=== PATIENT | female | born 1980 | race Caucasian/White ===

== ENCOUNTER 2020-02-20 09:02 | Outpatient (REF) | payer OTHER, SELFPAY ==
[2020-02-20 10:06] LABS: MANUAL DIFF FLAG NO
[2020-02-20 10:13] LABS: Glucose Urine UA NEG (NEG); Leukocyte Esterase Urine NEG (NEG); Nitrite Urine NEG (NEG); Specific Gravity - Urine 1.025 (1.005-1.025); Urine Blood NEG (NEG); Urine Ketones 5 MG/DL (NEG); Urine Protein TRACE MG/DL (NEG-TRACE)
[2020-02-20 10:14] LABS: Basophils Percent Auto 0.3 % (0-2); Eosinophils Absolute Auto 0.1 X10*3/uL (0.0-0.4); Eosinophils Percent Auto 1.4 % (0-4); Hematocrit 38.9 % (37-47); Hemoglobin 13.1 g/dl (12.0-16.0); Imm Gran Abs Auto 0.01 X10*3/uL (0.00-0.03); Imm Gran Pct Auto 0.3 % (0.0-0.4); Lymphocytes Percent Auto 26.9 % (20-40); Mean Corpuscular HGB Conc 33.7 g/dl (31.0-35.0); Mean Corpuscular Hemoglobin 32.3 pg (27.0-33.0); Mean Corpuscular Volume 95.8 fL (80-98); Mean Platelet Volume 9.3 fL (9.4-12.3); Monocytes Absolute Auto 0.2 X10*3/uL (0.1-1.2); Monocytes Percent Auto 5.7 % (2-11); Neutrophils Absolute Auto 2.3 X10*3/uL (2.0-8.3); Neutrophils Percent Auto 65.4 % (45-73); Platelet Count 168 X10*3/uL (160-400); Red Blood Count 4.06 X10*6/uL (4.20-5.50); Red Cell Distribution Width 12.4 % (11.0-16.0); White Blood Count 3.5 X10*3/uL (4.8-10.8)
[2020-02-20 10:15] LABS: Appearance Urine HAZY; Color Urine AMBER
[2020-02-20 11:11] LABS: Estimated Average Glucose 108 mg/dL; Hemoglobin A1c % 5.4 %
[2020-02-20 11:13] LABS: Erythrocyte Sedimentation Rate 2 MM/HR (0-20)
[2020-02-20 11:29] LABS: TSH reflex Free T4 1.44 mIU/mL (0.32-4.0)
[2020-02-20 12:02] LABS: Alanine Aminotransferase 107 U/L (0-31); Albumin Level 3.5 g/dL (3.5-5.0); Alkaline Phosphatase 168 U/L (39-117); Anion Gap 10 (12-20); Aspartate Amino Transferase 273 U/L (5-31); Bilirubin Total 1.1 mg/dL (0.0-1.0); Blood Urea Nitrogen 6 mg/dL (9-16); Calcium 8.1 mg/dL (8.4-10.2); Carbon Dioxide 31 mmol/L (22-29); Chloride 100 mmol/L (96-108); Cholesterol 83 mg/dL; Estimated Glomerular Filt Rate > 60; Glucose Fasting 128 mg/dL (60-99); HDL Cholesterol 22 mg/dL; LDL Cholesterol Calculated 35 mg/dl; Magnesium 1.7 mg/dL (1.6-2.6); Potassium 4.7 mmol/l (3.3-5.1); Sodium 136 mmol/L (135-145); Total Protein 6.2 g/dL (6.5-8.0); Triglycerides 132 mg/dL
== END 2020-02-20 09:03 | disposition home or self-care (01) ==
LOC: HO.LAB 09:02
PROVIDERS: PCP Internal Medicine; Visit Provider Internal Medicine
DX: R53.83 Other fatigue (principal); R10.2 Pelvic and perineal pain; R25.2 Cramp and spasm; R73.01 Impaired fasting glucose; E66.9 Obesity, unspecified; R32 Unspecified urinary incontinence
CPT/HCPCS: 36415; 80053; 80061; 81003; 83036; 83735; 84443; 85025; 85652

== ENCOUNTER 2020-03-06 12:43 | Outpatient (REF) | payer OTHER, SELFPAY ==
[2020-03-06 14:21] LABS: Alanine Aminotransferase 32 U/L (0-31); Albumin Level 3.4 g/dL (3.5-5.0); Alkaline Phosphatase 189 U/L (39-117); Anion Gap 12 (12-20); Aspartate Amino Transferase 53 U/L (5-31); Bilirubin Total 0.4 mg/dL (0.0-1.0); Blood Urea Nitrogen 9 mg/dL (9-16); Calcium 8.7 mg/dL (8.4-10.2); Carbon Dioxide 34 mmol/L (22-29); Chloride 99 mmol/L (96-108); Estimated Glomerular Filt Rate > 60; Glucose Random 70 mg/dL (60-115); Magnesium 2.1 mg/dL (1.6-2.6); Potassium 4.6 mmol/l (3.3-5.1); Sodium 140 mmol/L (135-145); Total Protein 6.4 g/dL (6.5-8.0)
[2020-03-06 14:40] LABS: TSH reflex Free T4 0.87 mIU/mL (0.32-4.0)
[2020-03-06 15:13] LABS: Erythrocyte Sedimentation Rate 7 MM/HR (0-20)
== END 2020-03-06 12:44 | disposition home or self-care (01) ==
LOC: HO.LAB 12:43
PROVIDERS: PCP Internal Medicine; Visit Provider Internal Medicine
DX: M79.604 Pain in right leg (principal); M79.605 Pain in left leg; R74.01 Elevation of levels of liver transaminase levels
CPT/HCPCS: 36415; 80053; 82550; 83735; 84443; 85652

== ENCOUNTER 2020-08-03 08:25 | Outpatient (REF) | payer OTHER, SELFPAY ==
[2020-08-03 09:36] LABS: MANUAL DIFF FLAG NO
[2020-08-03 09:41] LABS: Basophils Percent Auto 0.3 % (0-2); Eosinophils Percent Auto 0.7 % (0-4); Hematocrit 37.6 % (37-47); Hemoglobin 12.1 g/dl (12.0-16.0); Imm Gran Abs Auto 0.01 X10*3/uL (0.00-0.03); Imm Gran Pct Auto 0.3 % (0.0-0.4); Lymphocytes Absolute Auto 0.8 X10*3/uL (1.2-4.9); Lymphocytes Percent Auto 25.4 % (20-40); Mean Corpuscular HGB Conc 32.2 g/dl (31.0-35.0); Mean Corpuscular Hemoglobin 32.2 pg (27.0-33.0); Mean Platelet Volume 9.6 fL (9.4-12.3); Monocytes Absolute Auto 0.2 X10*3/uL (0.1-1.2); Neutrophils Percent Auto 66.3 % (45-73); Platelet Count 194 X10*3/uL (160-400); Red Blood Count 3.76 X10*6/uL (4.20-5.50); Red Cell Distribution Width 13.2 % (11.0-16.0)
[2020-08-03 10:21] LABS: Albumin Level 4.3 g/dL (3.5-5.0); Alkaline Phosphatase 118 U/L (39-117); Aspartate Amino Transferase 61 U/L (5-31); Blood Urea Nitrogen 11 mg/dL (9-16); Calcium 9.1 mg/dL (8.4-10.2); Chloride 101 mmol/L (96-108); Estimated Glomerular Filt Rate > 60; Potassium 4.6 mmol/L (3.3-5.1); Sodium 135 mmol/L (135-145)
[2020-08-03 10:31] LABS: Ferritin 112 ng/mL (10-122)
[2020-08-03 10:59] LABS: Alanine Aminotransferase 54 U/L (0-31); Anion Gap 15 (12-20); Bilirubin Total 0.8 mg/dL (0.0-1.0); Carbon Dioxide 24 mmol/L (22-29); Glucose Random 82 mg/dL (60-115); Iron 122 mcg/dL (30-160); Lactate Dehydrogenase 214 U/L (122-220); Percent Iron Saturation 31 % (15-50); Total Iron Binding Capacity 390 mcg/dL (228-428); Total Protein 7.2 g/dL (6.5-8.0); Unsaturated Iron Binding 268 ug/dL
[2020-08-05 13:21] LABS: Transferrin 314 mg/dL (188-341)
== END 2020-08-03 08:26 | disposition home or self-care (01) ==
LOC: HO.LAB 08:25
PROVIDERS: PCP Internal Medicine; Visit Provider Internal Medicine
DX: R79.0 Abnormal level of blood mineral (principal); R73.01 Impaired fasting glucose; R74.01 Elevation of levels of liver transaminase levels
CPT/HCPCS: 36415; 80053; 82728; 83540; 83615; 84466; 85025

== ENCOUNTER 2023-03-20 07:16 | Outpatient (AMB) | payer OTHER, SELFPAY ==
--- NOTE | 2023-03-20 07:17 | MHC.PC.OV ---
Intake Visit Reasons: Med review/ [phone] Allergies codeine [CODEINE] Allergy (Intermediate, Verified 03/20/23 07:23) RASH acetaminophen [Vicodin] Allergy (Unknown, Verified 03/20/23 07:23) unknown hydrocodone [Vicodin] Allergy (Unknown, Verified 03/20/23 07:23) unknown Tobacco use date assessed: 05/24/22 Dental Screening Dental Screen Date: 03/20/23 Did you have a dental visit in the last 12 months?: Yes Did you have a dental problem in the last 6 months where you did not have access to dental care?: No Was dental information given to patient?: Patient has dentist HPI HPI Comments History of Present Illness Details 43-year-old female past medical history significant for impaired glucose tolerance, hepatitis-C, arthralgia, anxiety, depression history polysubstance abuse, asthma. Patient of Dr. Hicks last seen in May, patient presents today for a telehealth appointment for medication review. Patient calling to resume her previously prescribed clonazepam of 2 mg t.i.d. as needed. Patient reports previously changed by Dr. Hicks as there was a shortage of the medication so her dose was changed to clonazepam 1 mg tablets take 2 tablets as needed t.i.d.. Patient reports she does not feel that two 1 mg tablet has the same affect and last as long. She is still having lot of anxiety. Requesting to switch back to her previously prescribed dose of 2 mg tablets t.i.d. p.r.n.. Prescription sent to patient's pharmacy on behalf of Dr. Hicks. [facility] Medical History Abdominal pain, suprapubic Abnormal serum iron level Alcoholism Anxiety Arthralgia Asthma Bruising, spontaneous Depression Edema Fatigue Hepatitis C History of substance abuse Impaired fasting glucose Insomnia Leg pain, bilateral Muscle cramps Obesity (BMI 30-39.9) Overweight (BMI 25.0-29.9) Polysubstance abuse Transaminitis Urinary incontinence Surgical History History of History of cholecystectomy History of laparoscopy History of tonsillectomy Family History Mother Diabetes Father Hypertension Paternal Grandfather Myocardial infarction Social History Housing: Apartment Alcohol intake: current Alcohol intake frequency: holidays/special occasions only Patient Tobacco Use Status: Current everyday Tobacco user Tobacco use type: Cigarette Cigarettes Per Day: 15 e-Cigarette/Vaping Use: Never Used Second Hand Smoke Exposure: No service: No Current occupational status: unemployed Cognitive needs: No Hearing needs: No Vision needs: Yes Questionnaire PHQ-9 Over the last 2 weeks, how often have you been bothered by any of the following problems? 1. Little interest or pleasure in doing things: not at all 2. Feeling down, depressed, or hopeless: several days 3. Trouble falling or staying asleep, or sleeping too much: not at all 4. Feeling tired or having little energy: several days 5. Poor appetite or overeating: not at all 6. Feeling bad about yourself - or that you are a failure or have let yourself or your family down: not at all 7. Trouble concentrating on things, such as reading the newspaper or watching television: not at all 8. Moving or speaking so slowly that other people could have noticed. Or the opposite - being so fidgety or restless that you have been moving around a lot more than usual: several days 9. Thoughts that you would be better off or of hurting yourself in some way: not at all Total score: 3 Depression Screening Interpretation: Positive Depression Screening Follow-up: Existing condition and In treatment Depression Screening Done: Yes [address] - PHQ-9 Billing: Yes Source: Developed by Drs. Manuel Rizo, Lucrecia Cage, Say Hampton and colleagues, with an educational zahra from [employer]. Thrive Questionnaire Date Thrive assessed: 05/24/22 AUDIT C Alcohol Use Questionnaire (AUDIT-C) 1. How often do you have a drink containing alcohol?: Never Total Score: 0 Score Reviewed/Action Taken: Yes RONALD-7 AMB Questionnaire RONALD-7 Date RONALD - 7 assessed: 05/24/22 Feeling nervous, anxious, or on edge: 3 = Nearly every day Not being able to stop or control worryin = Nearly every day Worrying too much about different things: 3 = Nearly every day Trouble relaxin = More than half the days Being so restless that it is hard to sit still: 2 = More than half the days Becoming easily annoyed or irritable: 0 = Not at all Feeling afraid as if something awful might happen: 2 = More than half the days Total RONALD-7 score (0-4 normal; 5-9 mild; 10-14 moderate; 15-21 severe): 15 Source: Developed by Drs. Manuel Rizo, Lucrecia Cage, Say Hampton and colleagues, with an educational zahra from [employer]. Review of Systems Const All systems reviewed & are unremarkable except as noted in HPI and below Psych Reports anxiety and Denies depression Physical exam (Primary Care) Tobacco/Smoking Status: Tobacco use Status Tobacco use date assessed 05/24/22 03/20/23 07:19 Patient Tobacco Use Status Current everyday Tobacco 03/20/23 07:19 Tobacco use type Cigarette 03/20/23 07:19 e-Cigarette/Vaping Use Never Used 03/20/23 07:19 PHQ-9: PHQ-9 Score PHQ-9: Total score 3 03/20/23 07:26 Depression Screening Interpretation: Positive Depression Screening Follow-up: Existing condition and In treatment Thrive Assessment: Date of Thrive Assessment Date Thrive assessed 05/24/22 03/20/23 07:19 Const Other: Unable to complete Tele health exam Telehealth Telehealth Location of provider rendering services: practice address Location of patient: address on file Patient Identification confirmed using: Name, : Yes Telehealth method: voice only (Android) Patient verbally consented to treatment: Yes Patient verbally consented to billing insurance company: Yes Patient informed of any privacy concerns related to visit: Yes Minutes spent on Phone/Video with Pt.: 5 Assessment and Plan Assessment & Plan (1) Anxiety: Code(s): F41.9 - Anxiety disorder, unspecified Plan: Patient change back to previously prescribed dose clonazepam and 2 mg tablets take 2 mg t.i.d. as needed. Rx sent to patient's pharmacy. Plan Follow-up in 6 months for physical exam with PCP. Medications: Changed From clonazepam 2 mg (2 x 1 mg) PO TID 30 days PRN 180 tabs 0RF anxiety F41.9 - Anxiety disorder, unspecified To clonazepam 2 mg PO TID PRN 90 tabs 0RF anxiety 30 days F41.9 - Anxiety disorder, unspecified Coding Level of Care Code Tele Est Pt Level 2 (66149) Diagnoses Anxiety F41.9
--- OUTSIDE RECORDS SUMMARY | 2023-03-20 07:17 | XMS_ITS | Continuity of Care Document ---
Author Name Unknown Organization [facility] Address [address] [place] [address]- Care Team Providers Care Neurodiagnostic Technologist Name Role Phone Kurt BOSS, Aime Eastman Primary Care Physician [phone] Encounter [facility] [place] Date(s): 08/01/22 - 09/23/[address] [address]- Attending Physician: Not on Staff, Attending MD Referring Physician: Kelly Rincon MD Allergies, Adverse Reactions, Alerts Substance Reaction Severity Status codeine vomiting, headache Active penicillin Active Immunizations Given and Recorded Vaccine Date Status Refusal Reason pneumococcal 23-valent vaccine 04/02/15 Given influenza virus vaccine, inactivated 04/02/15 Give n Medications acetaminophen 325 mg oral tablet 650 mg, By Mouth, Every 4 hours, (1-3), may give 325mg per patient preference and re-dose with 325mg within 4 hours, if needed. Patient should only receive a total of 650mg of Acetaminophen every 4 hours., # 30 tablet, Refills 1, Tot. Refills 1, Caryl... Start Date: 03/22/22 Status: Ordered Benadryl 25 mg oral capsule 1 capsule = 25 mg, By Mouth, Every 6 hours, 0 Refills, Maintenance, 03/18/22 8:46:00 EST, Partial fill upon patient request if the prescription is for a schedule II opioid drug. Start Date: 03/18/22 Status: Ordered Colace sodium 100 mg oral capsule 1 capsule = 100 mg, By Mouth, 2 times a day, PRN Constipation, # 20 capsule, 0 Refills, Maintenance, 03/25/15 6:46:38, Capsule Start Date: 03/25/15 Stop Date: 04/04/15 Status: Ordered Ferrous Sulfate EC Refills 0, Maintenance, 03/18/22 8:46:00 EST, Partial fill upon patient request if the prescriptionis for a schedule II opioid drug. Start Date: 03/18/22 Status: Ordered ibuprofen 800 mg oral tablet 800 mg, 1, tablet, By Mouth, Every 8 hours, (4-6), may give 400mg per patient preference and re-dose with 400mg within 8 hours, if needed. Patient should only receive a total of 800mg of Ibuprofen every 8 hours., # 30 tablet, Refills 1, Tot. Refills... Start Date: 03/22/22 Status: Ordered KlonoPIN 2 mg oral tablet 1 tablet = 2 mg, By Mouth, 3 times a day, 0 Refills, Maintenance, 07/13/17 22:51:28 EDT, Tablet Start Date: 07/13/17 Status: Ordered Liletta 52 mg intrauterine device 1 each = 52 mg, Once, 0 Refills, Maintenance, 03/19/22 22:27:00 EST, Partial fill upon patient request if the prescription is for a schedule II opioid drug. Start Date: 03/19/22 Status: Ordered Methadone By Mouth, 0 Refills, Maintenance, 06/18/20 12:39:00 EST, Partial fill upon patient request if the prescription is for a schedule II opioid drug. Start Date: 06/18/20 Status: Ordered Narcan 4 mg/0.1 mL nasal spray = 4 mg, Inhalation, Once, # 2 each, 0 Refills, Soft Stop, 11/11/17 14:14:51 EDT Start Date: 11/11/17 Status: Ordered oxyCODONE 5 mg oral tablet 5 mg, 1, tablet, By Mouth, Every 4 hours, PRN, (7-10), # 18 tablet, Refills 0, Tot. Refills 0, Maintenance, Pain , Severe, 03/22/22 7:10:00 EST, Route to Pharmacy Electronically, [facility]/pharmacy #[id number], Partial fill upon patient request if the prescriptio... Start Date: 03/22/22 Status: Ordered Prilosec 20 mg oral enteric coated capsule 1 capsule = 20 mg, By Mouth, 2 times a day, # 90 capsule, 10 Refills, Maintenance, 11/29/13 10:15:48, EC Capsule, 1 capsule By Mouth 2 times a day Start Date: 11/29/13 Status: Ordered PROzac 20 mg oral capsule 60 mg, 3, capsule, By Mouth, Daily, # 90 capsule, Refills 0, Maintenance, 07/13/17 22:52:10 EDT Start Date: 07/13/17 Status: Ordered simethicone 80 mg oral tablet, chewable 80 mg, Chew, 3 times a day, PRN, # 36 tablet, Refills 0, Tot. Refills 0, Maintenance, Gas, :10:00 EST, Route to Pharmacy Electronically, [facility]/pharmacy #[id number], Partial fill upon patient request if the prescription is for a schedule II opioid . Start Date: 03/22/22 Status: Ordered trazodone 100 mg oral tablet 1 tablet = 100 mg, By Mouth, 3 times a day, 0 Refills, Maintenance, 11/29/13 9:40:25 Start Date: 11/29/13 Status: Ordered Tylenol Caplet = 650 mg, By Mouth, Every 4 hours, 0 Refills, Maintenance, 04/08/15 17:19:50 Start Date: 04/08/15 Status: Ordered Wellbutrin SR 150 mg/12 hours oral tablet, extended release 1 tablet = 150 mg, By Mouth, 2 times a day, # 180 tablet, 0 Refills, Maintenance, 07/14/17 9:03:55 EDT, ER Tablet Start Date: 07/14/17 Status: Ordered Zofran 4 mg oral tablet 1 tablet = 4 mg, By Mouth, Every 8 hours, PRN as needed for nausea/vomiting, # 15 tablet, 0 Refills, Maintenance, 07/17/17 7:45:48 EDT, Tablet Start Date: 07/17/17 Stop Date: 07/22/17 Status: Ordered Problem List Condition Confirmation Course Effective Dates Status Health St atus Informant Anemia Confirmed Active Anxiety Confirmed Active Asthma Confirmed Active GBS bacteriuria Confirmed Active Chronic hypertension affecting Confirmed Active Maternal care for restricted growth, antepartum Confirmed Active Genital HSV Confirmed Active Herpes Confirmed Active Anxiety and depression Confirmed Active Morbid obesity Confirmed Active Obese class I Confirmed Active Opioid use disorder Confirmed Active Methadone maintenance therapy patient Confirmed Active Confirmed Active Uterine scar from previous delivery Confirmed Active Hepatitis C Confirmed Active Social History Social History Type Response Smoking Status Current every day perfecto mario entered on: 07/31/17 Sex Patient Care team information Care Team Personnel Name: Vanessa Villegas RN Position: [facility] RN Member Role: Primary Care Nurse Name: Aime Hicks MD Position: Reference Physician Member Role: PCP Address: Address: [address] [place] [address] [address] [place] [address]- Name: Claire Walker RN Position: [facility] SN RN Member Role: Primary Care Nurse Name: Ryann Shelton RN Position: [facility] RN Member Role: Primary Care Nurse Name: Teodoro Chen RN Position: [facility] RN Member Role: Primary Care Nurse Name: Betsy Nolen RN Position: [facility] RN Member Role: Primary Care Nurse Name: Libertad Worley RN Position: [facility] RN Member Role: Primary Care Nurse Name: Rosa M Crowell RN Position: [facility] Onco RN Member Role: Primary Care Nurse Name: Maddison Tobias RN Position: [facility] Flood[facility] Manager Member Role: Primary Care Nurse Name: Manuel Huynh MD Position: [facility] FLOOR COVERING INSTALLER MD Member Role: Lifetime FLOOR COVERING INSTALLER Physician Address: Address: [address] [place] [address]- Care Team Related Persons Name: BRIDGET GRACIE Address: home [address] [place] [address] Name: CANDICE COLLIER Address: home [address] [place] [address] Name: CONSUELO CASTILLO Address: Address: [address] [place] [address] [place] Name: JALEN MADISON Address: home [address] [place] [address] Name: VERONICA KEN Address: home [address] [place] [address]
--- OUTSIDE RECORDS SUMMARY | 2023-03-20 07:18 | XMS_ITS | Continuity of Care Document ---
Author Name Unknown Organization [facility] Address [address] [place] [address]- Care Team Providers Care Physical Education Professor Name Role Phone Aime Hicks MD Primary Care Physician [phone] [place] [facility] Date(s[place] 10/01/22 - 12/02/[address] [address]- Attending Physician: Not on Staff, Attending MD [...] 03/22/22 7:10:00 EST, Route to Pharmacy Electronically, [facility]/pharmacy #[id number], Partial fill upon patient request if [...] Gas, :10:00 EST, Route to Pharmacy Electronically, [facility]/pharmacy #[id number], Partial fill upon patient request if [...] Team Personnel Name: Vanessa Villegas RN Position: [facility] RN Member Role: Primary Care Nurse Name: Aime Hicks MD Position: Reference Physician Member Role: PCP Address: Address: [address] [place] [address] [address] [place] [address]- [place] Name: Claire Walker RN Position: [facility] SN RN Member Role: Primary Care Nurse Name: Ryann Shelton RN Position: [facility] RN Member Role: Primary Care Nurse Name: Teodoro Chen RN Position: [facility] RN Member Role: Primary Care Nurse Name: Betsy Nolen RN Position: [facility] RN Member Role: Primary Care Nurse Name: Libertad Worley RN Position: [facility] RN Member Role: Primary Care Nurse Name: Rosa M Crowell RN Position: [facility] Onco RN Member Role: Primary Care Nurse Name: Maddison Tobias RN Position: [facility] Manager State Member Role: Primary Care Nurse Name: Manuel Huynh MD Position: [facility] PLATER SUPERVISOR MD Member Role: Lifetime PLATER SUPERVISOR Physician Address: Address: [address] [place], [place] [address] [place] [address]- Care Team Related Persons Name: GRACIE GILL Address: home [address] [place] [address] Name: CANDICE COLLIER Address: [address] [place] [address] Name: CONSUELO CASTILLO Address: Address: [address] [place] [address] [place] Name: JALEN MADISON Address: [address] [place] [address] Name: VERONICA KEN Address: [address] [place] [address]
--- OUTSIDE RECORDS SUMMARY | 2023-03-20 07:19 | XMS_ITS | Continuity of Care Document ---
Author Name Unknown Organization [facility] Address [address] [place] [address]- Care Team Providers Care Nurse Administrator Name Role Phone Aime Hicks MD Primary Care Physician Encounter [facility] [place] Date(s): 11/02/22 - 12/02/[address] [address] Attending Physician: Ya Chang Admitting Physician: Ya Chang Referring Physician: Ya Chang Allergies, Adverse Reactions, Alerts Substance Reaction Severity [...] 03/22/22 7:10:00 EST, Route to Pharmacy Electronically, [facility]/pharmacy #[id number], Partial fill upon patient request if [...] Gas, :10:00 EST, Route to Pharmacy Electronically, [facility]/pharmacy #[id number], Partial fill upon patient request if [...] Team Personnel Name: Vanessa Villegas RN Position: [facility] RN Member Role: Primary Care Nurse Name: Aime Hicks MD Position: Reference Physician Member Role: PCP Address: Address: [address] [place] [address] [address] [place] [address]- Name: Claire Walker RN Position: [facility] SN RN Member Role: Primary Care Nurse Name: Ryann Shelton RN Position: [facility] RN Member Role: Primary Care Nurse Name: Teodoro Chen RN Position: [facility] RN Member Role: Primary Care Nurse Name: Betsy Nolen RN Position: [facility] RN Member Role: Primary Care Nurse Name: Libertad Worley RN Position: [facility] RN Member Role: Primary Care Nurse Name: Rosa M Crowell RN Position: [facility] Onco RN Member Role: Primary Care Nurse Name: Maddison Tobias RN Position: [facility] Physical Therapy Professor Member Role: Primary Care Nurse Name: Manuel Huynh MD Position: [facility] VENDING MECHANIC MD Member Role: Lifetime VENDING MECHANIC Physician Address: Address: [address] [place] [address]- Care Team Related Persons Name: BRIDGET GRACIE Address: [address] [place] [address] Name: CANDICE COLLIER Address: [address] [place] [address] Name: CONSUELO CASTILLO Address: Address: [address] [place] [address] [place] Name: JALEN MADISON Address: [address] [place] [address] Name: VERONICA KEN Address: [address] [place] [address]
== END 2023-03-20 07:35 | disposition home or self-care (01) ==
LOC: HO.HMGH 07:16
PROVIDERS: PCP Internal Medicine; Visit Provider Nurse Practitioner Family
DX: F41.9 Anxiety disorder, unspecified (principal)
CPT/HCPCS: 99212

== ENCOUNTER 2023-05-19 16:34 | Outpatient (AMB) | payer OTHER, SELFPAY ==
--- NOTE | 2023-05-19 16:34 | A.OFFPC_ITS ---
Intake Visit Reasons: Cold like symptoms Software Applications Specialist Required: No Accompanied by: Self / Same As Patient Allergies codeine [CODEINE] Allergy (Intermediate, Verified 05/19/23 17:05) RASH acetaminophen [Vicodin] Allergy (Unknown, Verified 05/19/23 17:05) unknown hydrocodone [Vicodin] Allergy (Unknown, Verified 05/19/23 17:05) unknown Medication List - Last Reconciled 05/19/23 by Aime Hicks MD acamprosate 333 mg PO BID albuterol sulfate 90 mcg/actuation (ProAir HFA) 2 puffs inhalation .4 TIMES A DAY PRN 30 days bupropion HCl 150 mg PO BID 30 days calcium carbonate-vitamin D3 600 mg-10 mcg (400 unit) 1 tab PO DAILY 90 days clonazepam 2 mg PO TID PRN 30 days cyanocobalamin (vitamin B-12) 1,000 mcg PO DAILY 90 days fluoxetine 60 mg (3 x 20 mg) PO QAM 30 days fluticasone propionate 110 mcg/actuation (Flovent HFA) 1 puff PO BID gabapentin 800 mg PO TID 30 days methadone 108 mg PO DAILY prazosin 2 mg PO BEDTIME tizanidine 4 mg PO TID PRN trazodone 50 mg PO BEDTIME PRN 30 days Tobacco use date assessed: 05/19/23 Dental Screening Dental Screen Date: 05/19/23 Did you have a dental visit in the last 12 months?: Yes Did you have a dental problem in the last 6 months where you did not have access to dental care?: No Was dental information given to patient?: Patient has dentist HPI Cold like symptoms HPI Details Patient's follow-up visit / consultation today is done over the phone - this is a Telehealth visit Patient's current medications have been reviewed and verified with patient and / or caregiver / proxy and have been updated accordingly in the medication list Patient states that she has had a chest cold and has been running on and off fever for the past 3 weeks; has been coughing up some greenish phlegm lately States that she had a sore throat initially but her throat feels fine now She denies any headaches or dizziness Denies any chest pains; relates (+) SOB and some chest tightness at times, with occasional wheezing No nausea/vomiting, no abdominal pain No change in bowel habits noted States that she tested herself for COVID a couple of times recently and both times, came back negative [facility] Medical History Overweight (BMI 25.0-29.9) Asthma Edema Bruising, spontaneous Alcoholism Abnormal serum iron level Polysubstance abuse History of substance abuse Insomnia Depression Anxiety Arthralgia Transaminitis Hepatitis C Leg pain, bilateral Obesity (BMI 30-39.9) Impaired fasting glucose Urinary incontinence Abdominal pain, suprapubic Fatigue Muscle cramps Surgical History History of laparoscopy History of cholecystectomy History of tonsillectomy History of Family History Mother Diabetes Father Hypertension Paternal Grandfather Myocardial infarction Social History Housing: Apartment Alcohol intake: current Alcohol intake frequency: holidays/special occasions only Patient Tobacco Use Status: Current everyday Tobacco user Tobacco use type: Cigarette Cigarettes Per Day: 15 e-Cigarette/Vaping Use: Never Used Second Hand Smoke Exposure: No service: No Current occupational status: unemployed Cognitive needs: No Hearing needs: No Vision needs: Yes Questionnaire PHQ-9 Over the last 2 weeks, how often have you been bothered by any of the following problems? 1. Little interest or pleasure in doing things: not at all 2. Feeling down, depressed, or hopeless: several days 3. Trouble falling or staying asleep, or sleeping too much: not at all 4. Feeling tired or having little energy: several days 5. Poor appetite or overeating: not at all 6. Feeling bad about yourself - or that you are a failure or have let yourself or your family down: not at all 7. Trouble concentrating on things, such as reading the newspaper or watching television: not at all 8. Moving or speaking so slowly that other people could have noticed. Or the opposite - being so fidgety or restless that you have been moving around a lot more than usual: several days 9. Thoughts that you would be better off or of hurting yourself in some way: not at all Total score: 3 Depression Screening Interpretation: Positive Depression Screening Follow-up: Existing condition and In treatment Depression Screening Done: Yes 81153 - PHQ-9 Billing: Yes Source: Developed by Drs. Manuel Rizo, Lucrecia Caeg, Say Hampton and colleagues, with an educational zahra from [employer]. Thrive Questionnaire Date Thrive assessed: 05/19/23 I am a: Patient What is your living situation today?: I have a steady place to live Within the past 12 months, did the food you bought not last and you didn't have the money to get more?: Never true Within the past 12 months, did you worry whether your food would run out before you got money to buy more?: Never true Do you have trouble paying for medicines?: No Do you have trouble getting transportation to medical appointments?: No Do you have trouble paying your heating and electricity bill?: No Do you have trouble taking care of your child, family member or friend?: No Do you have trouble with day-to-day activities such as bathing, preparing meals, shopping, managing finances, etc.?: No Are you currently unemployed and looking for a job?: No Are you interested in more education?: No Please select the resources that you would like help with: None Currently or been in a relationship where the following occur: no concerns reported THRIVE Score: 0 AUDIT C Alcohol Use Questionnaire (AUDIT-C) 1. How often do you have a drink containing alcohol?: Never Total Score: 0 Score Reviewed/Action Taken: Yes RONALD-7 AMB Questionnaire RONALD-7 Date RONALD - 7 assessed: 05/19/23 Feeling nervous, anxious, or on edge: 3 = Nearly every day Not being able to stop or control worryin = Nearly every day Worrying too much about different things: 3 = Nearly every day Trouble relaxin = More than half the days Being so restless that it is hard to sit still: 2 = More than half the days Becoming easily annoyed or irritable: 0 = Not at all Feeling afraid as if something awful might happen: 2 = More than half the days Total RONALD-7 score (0-4 normal; 5-9 mild; 10-14 moderate; 15-21 severe): 15 Source: Developed by Lucrecia Lew Niles, Say Hampton and colleagues, with an educational zahra from [employer]. Review of Systems Const Denies chills, Reports fatigue, Reports fever(s) (on and off) and Denies headache(s) ENT Denies dysphagia, Denies dizziness, Denies otalgia, Denies headache(s), Denies neck pain, Denies odynophagia and Denies sore throat Card Denies chest pain, Denies palpitations and Reports dyspnea on exertion (mild) Resp Reports chest congestion (chest feels tight at times), Reports cough (coughs up greenish phlegm at times), Reports dyspnea on exertion (mild) and Reports wheezing (occasionally) GI Denies abdominal pain, Denies constipation, Denies dysphagia, Denies heartburn, Denies diarrhea, Denies nausea, Denies odynophagia and Denies vomiting Denies difficulty voiding, Denies nocturia and Denies dysuria Musc Denies neck pain Skin/Breast Denies rash Neuro Denies dizziness and Denies headache(s) Endo Reports fatigue and Denies palpitations Aller/Immun Reports wheezing (occasionally) Physical exam (Primary Care) Vital Signs: Physical examination is not performed as visit / consultation today is done over the phone - Telehealth visit All physical findings indicated here, if present, are as per patient's and / or caregivers / proxy's report Tobacco/Smoking Status: Tobacco use Status Tobacco use date assessed 05/19/23 05/19/23 16:38 Patient Tobacco Use Status Current everyday Tobacco 05/19/23 16:38 Tobacco use type Cigarette 05/19/23 16:38 e-Cigarette/Vaping Use Never Used 05/19/23 16:38 PHQ-9: PHQ-9 Score PHQ-9: Total score 3 05/19/23 17:07 Depression Screening Interpretation: Positive Depression Screening Follow-up: Existing condition and In treatment Thrive Assessment: Date of Thrive Assessment Date Thrive assessed 05/19/23 05/19/23 16:38 Currently or been in a relationship where the following occur: no concerns reported Telehealth Telehealth Location of provider rendering services: practice address Location of patient: address on file Patient Identification confirmed using: Name, : Yes Telehealth method: voice only Patient verbally consented to treatment: Yes Patient verbally consented to billing insurance company: Yes Patient informed of any privacy concerns related to visit: Yes Minutes spent on Phone/Video with Pt.: 21 Assessment and Plan Assessment & Plan (1) Asthma exacerbation: Code(s): J45.901 - Unspecified asthma with (acute) exacerbation Qualifiers: Asthma severity: moderate Asthma persistence: persistent Qualified Code(s): J45.41 - Moderate persistent asthma with (acute) exacerbation Plan: Will start patient empirically on Doxycycline 100 mg BID x 10 days and oral Prednisone taper Continue Flovent 100 mch 1 inhalation BID and Albuterol HFA 2 inhalations Q 6 hours PRN (2) Alcoholism: Code(s): F10.20 - Alcohol dependence, uncomplicated Plan: States that she has been sober and has not had any alcohol to drink in a while now Continue Campral 333 mg 1 tablet BID (3) Hepatitis C: Code(s): B19.20 - Unspecified viral hepatitis C without hepatic coma Qualifiers: Viral hepatitis chronicity: chronic Hepatic coma status: without hepatic coma Qualified Code(s): B18.2 - Chronic viral hepatitis C Plan: S/P Tx with [facility] Patient's hepatitis C viral load was at 3,650,000 when checked last February 2019; genotype is 1A Follow up with GI as scheduled for continuing surveillance (4) History of substance abuse: Code(s): F19.11 - Other psychoactive substance abuse, in remission Plan: Used to be on Suboxone but suffered a relapse; is now on Methadone at 108 mg QD Follow up with the [facility] ([facility]) regularly as scheduled (5) Insomnia: Code(s): G47.00 - Insomnia, unspecified Qualifiers: Insomnia type: unspecified Qualified Code(s): G47.00 - Insomnia, unspecified Plan: Sleep hygiene reinforced Continue Trazodone 50 mg Q HS PRN (6) Anxiety: Code(s): F41.9 - Anxiety disorder, unspecified Plan: Continue Clonazepam 2 mg 3 times a day as needed (7) Depression: Code(s): F32.9 - Major depressive disorder, single episode, unspecified Qualifiers: Depression Type: major depressive disorder Major depression recurrence: recurrent Active/Remission status: currently active Major depression episode severity: unspecified Qualified Code(s): F33.9 - Major depressive disorder, recurrent, unspecified Plan: Continue Fluoxetine 20 mg 3 capsules (60 mg) daily in the morning, Wellbutrin SR 150 mg twice a day, and Prazosin 2 mg once a day at bedtime (helps with her nightmares), as well as Gabapentin 800 mg TID Follow-up with Psychiatry as scheduled Plan To return as scheduled in August 2023 for her annual physical examination Medications: New prednisone 4 tablets x 2 days, then 3 tablets x 2 days, then 2 tablets x 2 days, then 1 tablet x 2 days 8 days 20 tabs 0RF J45.901 - Unspecified asthma with (acute) exacerbation, M25.50 - Pain in unspecified joint doxycycline monohydrate 100 mg PO BID 10 days 20 caps 0RF Coding Level of Care Code Tele Est Pt Level 3 (97550) Diagnoses Moderate persistent asthma with exacerbation J45.41 Asthma severity: moderate Asthma persistence: persistent Alcoholism F10.20 Chronic hepatitis C without hepatic coma B18.2 Viral hepatitis chronicity: chronic Hepatic coma status: without hepatic coma History of substance abuse F19.11 Insomnia, unspecified type G47.00 Insomnia type: unspecified Anxiety F41.9 Episode of recurrent major depressive disorder, unspecified depression episode severity F33.9 Depression Type: major depressive disorder Major depression recurrence: recurrent Active/Remission status: currently active Major depression episode severity: unspecified
--- OUTSIDE RECORDS SUMMARY | 2023-05-19 16:35 | XMS_ITS | Continuity of Care Document ---
Author Name Unknown Organization [facility] Address [address] [place] [id number]- Care Team Providers Care Law Clerk Name Role Phone Barbra BOSS, Juancarlos Michelle Primary Care Physician [place] [facility] [place] - 04/22/[address] [address]- Attending Physician: Ya Chang Admitting Physician: Ya Chang Referring Physician: AdmtrYa Allergies, Adverse Reactions, Alerts Substance Reaction Severity [...] 03/22/22 7:10:00 EST, Route to Pharmacy Electronically, [facility]/pharmacy #[id number], Partial fill upon patient request if [...] Gas, :10:00 EST, Route to Pharmacy Electronically, [facility]/pharmacy #[id number], Partial fill upon patient request if [...] Care team information Care Team Personnel Name: Vanesas Villegas RN Position: [facility] RN Member Role: Primary Care Nurse Name: Claire Walker RN Position: [facility] SN RN Member Role: Primary Care Nurse Name: Ryann Shelton RN Position: [facility] RN Member Role: Primary Care Nurse Name: Teodoro Chen RN Position: [facility] RN Member Role: Primary Care Nurse Name: Juancarlos Belle MD Position: Reference Physician Member Role: PCP Address: Address: [address] [place] [id number] Name: Betsy Nolen RN Position: [facility] RN Member Role: Primary Care Nurse Name: Libertad Worley RN Position: [facility] RN Member Role: Primary Care Nurse Name: Rosa M Crowell RN Position: [facility] Onco RN Member Role: Primary Care Nurse Name: Maddison Tobias RN Position: [facility] Vocational Examiner Member Role: Primary Care Nurse Name: Manuel Hunyh MD Position: [facility] CONCRETE MIXING TRUCK DRIVER MD Member Role: Lifetime CONCRETE MIXING TRUCK DRIVER Physician Address: Address: [address] [place] [address] [address]- Care Team Related Persons Name: GRACIE GILL Address: home [address] [place] [address] Name: CANDICE COLLIER Address: home [address] [place] [address] Name: CONSUELO CASTILLO Address: Address: home [address] [place] [address] [place] Name: JALEN MADISON Address: home [address] [place] [address] Name: VERONICA KEN Address: home [address] [place] [address]
--- OUTSIDE RECORDS SUMMARY | 2023-05-19 16:36 | XMS_ITS | Continuity of Care Document ---
Author Name Unknown Organization [facility] Address [address] [place] [address]- Care Team Providers Care Dyno Technician Name Role Phone Barbra BOSS, Juancarlos Michelle Primary Care Physician [place] [facility] [place] - 04/13/[address] [address]- Allergies, Adverse Reactions, Alerts Substance Reaction Severity [...] 7:10:00 EST, Route to Pharmacy Electronically, [facility]/pharmacy #[id number], Partial fill upon patient request [...] :10:00 EST, Route to Pharmacy Electronically, [facility]/pharmacy #[id number], Partial fill upon patient request [...] Team Personnel Name: Vanessa Villegas RN Position: [facility] RN Member Role: Primary Care Nurse Name: Claire Walker RN Position: [facility] SN RN Member Role: Primary Care Nurse Name: Ryann Shelton RN Position: [facility] RN Member Role: Primary Care Nurse Name: Teodoro Chen RN Position: [facility] RN Member Role: Primary Care Nurse Name: Juancarlos Belle MD Position: Reference Physician Member Role: PCP Address: Address: [address] [place] [address]- Name: Betsy Nolen RN Position: [facility] RN Member Role: Primary Care Nurse Name: Libertad Worley RN Position: [facility] RN Member Role: Primary Care Nurse Name: oRsa M Crowell RN Position: [facility] Onco RN Member Role: Primary Care Nurse Name: Maddison Tobias RN Position: [facility] Bottle And Glass Inspector Member Role: Primary Care Nurse Name: Manuel Huynh MD Position: [facility] NETWORK SYSTEMS ADMINISTRATOR MD Member Role: [employer]etime NETWORK SYSTEMS ADMINISTRATOR Physician Address: Address: [address] [place] [address]- Care Team Related Persons Name: GRACIE GILL Address: home [address] [place] [address] Name: CANDICE COLLIER Address: home [address] [place] [address] Name: CONSUELO CASTILLO Address: Address: home [address] [place] [address] [place] Name: JALEN MADISON Address: home [address] [place] [address] Name: VERONICA KEN Address: home [address] [place] [address]
--- OUTSIDE RECORDS SUMMARY | 2023-05-19 16:37 | XMS_ITS | Continuity of Care Document ---
Author Name Unknown Organization [facility] Address [address] [place] [address]- Care Team Providers Care Certified Technician Specialist Name Role Phone Barbra BOSS, Juancarlos Michelle Primary Care Phys[place] [facility] [place] - 04/22/[address] [address]- Attending Physician: Not on Staff, Attending MD Allergies, Adverse Reactions, Alerts Substance Reaction [...] 03/22/22 7:10:00 EST, Route to Pharmacy Electronically, [facility]/pharmacy #[id number], Partial fill upon patient request if the [...] Gas, :10:00 EST, Route to Pharmacy Electronically, [facility]/pharmacy #[id number], Partial fill upon patient request if [...] Team Personnel Name: Vanessa Villegas RN Position: [facility] RN Member Role: Primary Care Nurse Name: Claire Walker RN Position: [facility] SN RN Member Role: Primary Care Nurse Name: Ryann Shelton RN Position: [facility] RN Member Role: Primary Care Nurse Name: Teodoro Chen RN Position: [facility] RN Member Role: Primary Care Nurse Name: Juancarlos Belle MD Position: Reference Physician Member Role: PCP Address: Address: [address] [place] [address]- Name: Betsy Nolen RN Position: [facility] RN Member Role: Primary Care Nurse Name: Libertad Worley RN Position: [facility] RN Member Role: Primary Care Nurse Name: Rosa M Crowell RN Position: [facility] Onco RN Member Role: Primary Care Nurse Name: Maddison Tobias RN Position: [facility] Cigar Brander Member Role: Primary Care Nurse Name: Manuel Huynh MD Position: [facility] SHIPPING SUPERVISOR MD Member Role: [employer]etime SHIPPING SUPERVISOR Physician Address: Address: [address] [place], [place] [address] [place], [place] [address] Care Team Related Persons Name: GRACIE GILL Address: home [address] [place] [address] Name: CANDICE COLLIER Address: home [address] [place] [address] Name: CONSUELO CASTILLO Address: Address: home [address] [place] [address] [place] Name: JALEN MADISON Address: home [address] [place] [address] Name: VERONICA KEN Address: home [address] [place] [address]
== END 2023-05-19 17:14 | disposition home or self-care (01) ==
LOC: HO.HMGH 16:34
PROVIDERS: PCP Internal Medicine; Visit Provider Internal Medicine
DX: J45.41 Moderate persistent asthma with (acute) exacerbation (principal); F10.20 Alcohol dependence, uncomplicated; G47.00 Insomnia, unspecified; F33.9 Major depressive disorder, recurrent, unspecified; F41.9 Anxiety disorder, unspecified
CPT/HCPCS: 99213

== ENCOUNTER 2024-03-20 13:03 | Outpatient (AMB) | payer OTHER, SELFPAY ==
[2024-03-20 13:09] VITALS: BP 110/78; PULSE 73; O2SAT 97; BMI 33.0
--- NOTE | 2024-03-20 13:09 | A.OFFPC_ITS ---
Vital Signs 03/20/24 13:09 Height 5 ft 2 in Weight 180 lb 8 oz BMI 33.0 BP 110/78 Blood Pressure Location Lt brachial Position Sitting Pulse 73 Pulse Source Pulse Oximeter Pulse Oximetry (%) 97 Oxygen Delivery Method Room Air Intake Visit Reasons: Insomnia, Med F/U Hand I Blocker Required: No Accompanied by: Self / Same As Patient Allergies codeine [CODEINE] Allergy (Intermediate, Verified 03/20/24 13:47) RASH acetaminophen [Vicodin] Allergy (Unknown, Verified 03/20/24 13:47) unknown hydrocodone [Vicodin] Allergy (Unknown, Verified 03/20/24 13:47) unknown Medication List - Last Reconciled 03/20/24 by Aime Hicks MD acamprosate 333 mg PO BID albuterol sulfate 90 mcg/actuation (Ventolin HFA) 2 puffs inhalation QID PRN bupropion HCl SR 150 mg PO BID 30 days calcium carbonate-vitamin D3 600 mg-10 mcg (400 unit) 1 tab PO DAILY 90 days clonazepam 2 mg PO TID PRN 30 days cyanocobalamin (vitamin B-12) 1,000 mcg PO DAILY 90 days fluoxetine 60 mg (3 x 20 mg) PO QAM 30 days fluticasone propionate 110 mcg/actuation (Flovent HFA) 1 puff PO BID gabapentin 800 mg PO TID 30 days methadone 108 mg PO DAILY mirabegron ER (Myrbetriq) 50 mg PO DAILY mometasone 100 mcg/actuation (Asmanex HFA) 2 puffs inhalation BID prazosin 2 mg PO BEDTIME tizanidine 4 mg PO TID PRN Tobacco use date assessed: 03/20/24 Dental Screening Dental Screen Date: 03/20/24 Did you have a dental visit in the last 12 months?: Yes Did you have a dental problem in the last 6 months where you did not have access to dental care?: No Was dental information given to patient?: Patient has dentist HPI Insomnia, Med F/U HPI Details Patient comes in today for her follow-up visit She went to the ER at [facility] early last month for evaluation of her IUD due to increased cramping pain for the past few days States that she has had intermittent cramps and vaginal bleeding for the past 15 months and is scheduled to have her IUD removed on an outpatient basis on 02/12/2024 but she came into the ER the weekend prior due to her increased cramping pain She was examined in the ER but the examiner was unable to see any of her IUD strings and suspects that her IUD may have already fallen out at the time She was advised that there were no signs of pelvic inflammatory disease on her pelvic exam and no vaginal bleeding noted as well at the time and was advised to keep her outpatient follow-up with her paper folding machine operator the following Monday She continues to experience recurrent urinary symptoms due to stress urinary incontinence and is scheduled for surgery on 04/09/2024 (likely a mesh or sling insertion) to help address her urinary symptoms She was also recently treated for bacterial vaginosis that was diagnosed during her ER visit last month Patient states that she continues to experience significant difficulty with sleeping at night States that her Trazodone, previously effective at 300 mg, is now somehow inexplicably lowered down to 50 mg and is of his sleep ineffective, causing her to wake after only two hours; she also reports experiencing frequent nightmares when sleeping at night lately She is also concerned about her weight gain, which she states has exacerbated her depression, and is interested in trying the GLP-1s to help her lose weight She has been referred to and will be seeing a psychiatrist within the next month Additionally, she reports a history of toenail problems, possibly linked to a past hepatitis infection, with toenails changing color and one of her toenails falling off recently She denies any headaches or dizziness Denies any chest pains, no increased shortness of breath No nausea/vomiting, no change in bowel habits noted [facility] Medical History Overweight (BMI 25.0-29.9) Asthma Edema Bruising, spontaneous Alcoholism Abnormal serum iron level Polysubstance abuse History of substance abuse Insomnia Depression Anxiety Arthralgia Transaminitis Hepatitis C Leg pain, bilateral Obesity (BMI 30-39.9) Impaired fasting glucose Urinary incontinence Abdominal pain, suprapubic Fatigue Muscle cramps Surgical History History of laparoscopy History of cholecystectomy History of tonsillectomy History of Family History Mother Diabetes Father Hypertension Paternal Grandfather Myocardial infarction Social History Housing: Apartment Alcohol intake: current Alcohol intake frequency: holidays/special occasions only Patient Tobacco Use Status: Current everyday Tobacco user Tobacco use type: Cigarette Cigarettes Per Day: 15 e-Cigarette/Vaping Use: Never Used Second Hand Smoke Exposure: No service: No Current occupational status: unemployed Cognitive needs: No Hearing needs: No Vision needs: Yes Questionnaire PHQ-9 Over the last 2 weeks, how often have you been bothered by any of the following problems? 1. Little interest or pleasure in doing things: not at all 2. Feeling down, depressed, or hopeless: several days 3. Trouble falling or staying asleep, or sleeping too much: not at all 4. Feeling tired or having little energy: several days 5. Poor appetite or overeating: not at all 6. Feeling bad about yourself - or that you are a failure or have let yourself or your family down: not at all 7. Trouble concentrating on things, such as reading the newspaper or watching television: not at all 8. Moving or speaking so slowly that other people could have noticed. Or the opposite - being so fidgety or restless that you have been moving around a lot more than usual: several days 9. Thoughts that you would be better off or of hurting yourself in some way: not at all Total score: 3 Depression Screening Interpretation: Positive Depression Screening Follow-up: Existing condition, In treatment and New Medication prescribed Depression Screening Done: Yes 74787 - PHQ-9 Billing: Yes Source: Developed by Drs. Manuel Rizo, Lucrecia Cage, Say Hampton and colleagues, with an educational zahra from [employer]. Thrive Questionnaire Date Thrive assessed: 03/20/24 I am a: Patient What is your living situation today?: I have a steady place to live Within the past 12 months, did the food you bought not last and you didn't have the money to get more?: Never true Within the past 12 months, did you worry whether your food would run out before you got money to buy more?: Never true Do you have trouble paying for medicines?: No Do you have trouble getting transportation to medical appointments?: No Do you have trouble paying your heating and electricity bill?: No Do you have trouble taking care of your child, family member or friend?: No Do you have trouble with day-to-day activities such as bathing, preparing meals, shopping, managing finances, etc.?: No Are you currently unemployed and looking for a job?: No Are you interested in more education?: No Please select the resources that you would like help with: None Currently or been in a relationship where the following occur: No concerns reported THRIVE Score: 0 AUDIT C Alcohol Use Questionnaire (AUDIT-C) 1. How often do you have a drink containing alcohol?: Never 3. How often do you have six or more drinks on one occasion?: Never Total Score: 0 Score Reviewed/Action Taken: Yes RONALD-7 AMB Questionnaire RONALD-7 Date RONALD - 7 assessed: 03/20/24 Feeling nervous, anxious, or on edge: 3 = Nearly every day Not being able to stop or control worryin = Nearly every day Worrying too much about different things: 3 = Nearly every day Trouble relaxin = More than half the days Being so restless that it is hard to sit still: 2 = More than half the days Becoming easily annoyed or irritable: 0 = Not at all Feeling afraid as if something awful might happen: 2 = More than half the days Total RONALD-7 score (0-4 normal; 5-9 mild; 10-14 moderate; 15-21 severe): 15 Source: Developed by Drs. Manuel Rizo, Lucrecia Cage, Say Hampton and colleagues, with an educational zahra from [employer]. Review of Systems Const Denies chills, Reports difficulty sleeping, Reports fatigue, Denies fever(s) and Denies headache(s) ENT Denies dysphagia, Denies dizziness, Denies otalgia, Denies headache(s), Denies neck pain, Denies odynophagia and Denies sore throat Card Denies chest pain, Denies palpitations and Reports dyspnea on exertion (mild) Resp Denies chest congestion, Denies cough and Reports dyspnea on exertion (mild) GI Reports abdominal pain (on and off cramping pain over the lower abdomen), Denies constipation, Denies dysphagia, Denies heartburn, Denies diarrhea, Denies nausea, Denies odynophagia and Denies vomiting Denies difficulty voiding, Denies nocturia, Denies dysuria, Reports urinary incontinence and Reports urinary urgency (at times) Musc Denies back pain, Denies arthralgias and Denies neck pain Skin/Breast Denies rash Neuro Denies dizziness and Denies headache(s) Psych Reports anxiety and Reports depression Endo Reports fatigue and Denies palpitations Physical exam (Primary Care) Vital Signs: Last Vital Signs Pulse 73 03/20/24 13:09 BP 110/78 03/20/24 13:09 Pulse Ox 97 03/20/24 13:09 Oxygen Delivery Method Room Air 03/20/24 13:09 BMI result Body Mass Index 33.0 Tobacco/Smoking Status: Tobacco use Status Tobacco use date assessed 03/20/24 03/20/24 13:13 Patient Tobacco Use Status Current everyday Tobacco 03/20/24 13:13 Tobacco use type Cigarette 03/20/24 13:13 e-Cigarette/Vaping Use Never Used 03/20/24 13:13 PHQ-9: PHQ-9 Score PHQ-9: Total score 3 03/24/24 13:29 Depression Screening Interpretation: Positive Depression Screening Follow-up: Existing condition, In treatment and New Medication prescribed Thrive Assessment: Date of Thrive Assessment Date Thrive assessed 03/20/24 03/20/24 13:13 Currently or been in a relationship where the following occur: No concerns reported Const General: no acute distress and alert HENMT Ears: TM's normal bilaterally and EAC's normal Throat: Yes posterior oropharynx normal and Yes tonsils normal (no TP congestion) Neck Neck: Yes supple and No lymphadenopathy Thyroid: Thyroid normal Resp Auscultation: clear to auscultation bilaterally, no rales and no wheezes Cardio Rate: regular rate Rhythm: regular rhythm Heart sounds: no murmurs GI Palpation (GI): Soft to palpation and nontender Auscultation: normal bowel sounds General: Yes no CVA tenderness Back/Spine/Pelvis Back: no CVA tenderness Thoracic/Lumbar Spine: lumbar spinal tenderness (mild) Skin Rashes: no rashes Extrem Other: (+) onycholysis of several toenails on both feet General: Yes no clubbing, cyanosis or edema Coding Level of Care Code Est Pt Level 4 (53344) Diagnoses Urinary incontinence, unspecified type R32 Urinary Incontinence type: unspecified incontinence Mild intermittent asthma without complication J45.20 Asthma complication type: uncomplicated Asthma persistence: intermittent Asthma severity: mild Alcoholism F10.20 Chronic hepatitis C without hepatic coma B18.2 Hepatic coma status: without hepatic coma Viral hepatitis chronicity: chronic Impaired fasting glucose R73.01 History of substance abuse F19.11 Onycholysis of toenail L60.1 Insomnia, unspecified type G47.00 Insomnia type: unspecified Anxiety F41.9 Episode of recurrent major depressive disorder, unspecified depression episode severity F33.9 Active/Remission status: currently active Depression Type: major depressive disorder Major depression episode severity: unspecified Major depression recurrence: recurrent Obesity (BMI 30-39.9) E66.9 Additional Codes PHQ-9 - 23518 - PHQ-9 Billing: Yes ([id number]) Assessment & Plan Assessment & Plan (1) Urinary incontinence: Code(s): R32 - Unspecified urinary incontinence Category: Medical Qualifiers: Urinary Incontinence type: unspecified incontinence Qualified Code(s): R32 - Unspecified urinary incontinence Plan: Will check her urinalysis for further evaluation when she goes for her follow up labs later today She is currently scheduled to undergo urologic surgery to help address this issue at the end of the month at [facility] on 04/09/2024 Follow-up with urology as scheduled (2) Asthma: Code(s): J45.909 - Unspecified asthma, uncomplicated Category: Medical Qualifiers: Asthma complication type: uncomplicated Asthma persistence: intermittent Asthma severity: mild Qualified Code(s): J45.20 - Mild intermittent asthma, uncomplicated Plan: Her asthma currently appears adequately controlled Continue Flovent 100 mch 1 inhalation BID and Albuterol HFA 2 inhalations Q 6 hours PRN (3) Alcoholism: Code(s): F10.20 - Alcohol dependence, uncomplicated Category: Medical Plan: States that she has been able to stay sober and has not had any alcohol to drink in a while now Continue Campral 333 mg 1 tablet BID (4) Hepatitis C: Code(s): B19.20 - Unspecified viral hepatitis C without hepatic coma Category: Medical Qualifiers: Hepatic coma status: without hepatic coma Viral hepatitis chronicity: chronic Qualified Code(s): B18.2 - Chronic viral hepatitis C Plan: S/P Tx with [facility] Patient's hepatitis C viral load was at 3,650,000 when checked last February 2019; genotype is 1A Follow up with GI as scheduled for continuing surveillance (5) Impaired fasting glucose: Code(s): R73.01 - Impaired fasting glucose Category: Medical Plan: Her FBS was elevated at 128 mg/dl but her HgbA1c was normal at 5.4% when they were both last checked back in 2019 Patient has not been able to get any follow up labs done since Will send her to the lab to get all of her tests updated and rechecked, including her FBS and HgbA1c Reinforced low calorie/low carb diet (6) History of substance abuse: Code(s): F19.11 - Other psychoactive substance abuse, in remission Category: Medical Plan: She used to be on Suboxone but suffered a relapse; is now on Methadone at 108 mg QD Follow up with the [facility] ([facility]) regularly as scheduled (7) Onycholysis of toenail: Code(s): L60.1 - Onycholysis Category: Medical Plan: Will refer patient to podiatry for further evaluation and management of this issue (8) Insomnia: Code(s): G47.00 - Insomnia, unspecified Category: Medical Qualifiers: Insomnia type: unspecified Qualified Code(s): G47.00 - Insomnia, unspecified Plan: Sleep hygiene reinforced As she finds that Trazodone no longer seems to be working for her even before her dose was cut down from 300 mg daily dose, will stop Trazodone Will start her instead on Mirtazapine 30 mg Q HS and increase her Prazosin to 3 mg Q HS (9) Anxiety: Code(s): F41.9 - Anxiety disorder, unspecified Category: Medical Plan: Continue Clonazepam 2 mg 3 times a day as needed, Bupropion XL 150 mg QD and Fl uoxetine 60 mg QD Follow up with psychiatry as scheduled (10) Depression: Code(s): F32.9 - Major depressive disorder, single episode, unspecified Category: Medical Qualifiers: Active/Remission status: currently active Depression Type: major depressive disorder Major depression episode severity: unspecified Major depression recurrence: recurrent Qualified Code(s): F33.9 - Major depressive disorder, recurrent, unspecified Plan: Continue Fluoxetine 20 mg 3 capsules (60 mg) daily in the morning, Wellbutrin SR 150 mg twice a day, and Prazosin 3 mg once a day at bedtime (to help with her nightmares), as well as Gabapentin 800 mg TID Follow-up with Psychiatry as scheduled (11) Obesity (BMI 30-39.9): Code(s): E66.9 - Obesity, unspecified Category: Medical Plan: Reinforce diet/exercise as tolerated/lose weight Plan Follow up in 4 months Orders: Orders Complete Blood Count Auto Diff 03/20/24 D64.9 - Anemia, unspecified, Z00.00 - Encounter for general adult medical examination without abnormal findings UA CC w/rflx Micro + Cult 03/20/24 R30.0 - Dysuria, Z00.00 - Encounter for general adult medical examination without abnormal findings Vitamin D 25-OH Total 03/20/24 E55.9 - Vitamin D deficiency, unspecified, Z00.00 - Encounter for general adult medical examination without abnormal f indings Comprehensive [place]. Panel Fast 03/20/24 E78.00 - Pure hypercholesterolemia, unspecified, Z00.00 - Encounter for general adult medical examination without abnormal findings Lipid Panel 03/20/24 E78.00 - Pure hypercholesterolemia, unspecified, Z00.00 - Encounter for general adult medical examination without abnormal findings Hemoglobin A1c 03/20/24 E11.9 - Type 2 diabetes mellitus without complications, Z00.00 - Encounter for general adult medical examination without abnormal findings TSH reflex Free T4 03/20/24 E78.00 - Pure hypercholesterolemia, unspecified, Z00.00 - Encounter for general adult medical examination without abnormal findings Vitamin B12 and Folate 03/20/24 E53.8 - Deficiency of other specified B group vitamins, Z00.00 - Encounter for general adult medical examination without abnormal findings Referrals Podiatry Referral L60.1 - Onycholysis Medications: New biotin 5 mg PO DAILY 90 days 90 tabs 3RF acetaminophen do not take more that 2000 mg a day 500 mg PO Q6H 30 days PRN 120 tabs 0RF pain mirtazapine 30 mg PO BEDTIME 30 days 30 tabs 1RF cholecalciferol (vitamin D3) 50 mcg PO DAILY 90 days 90 caps 3RF E55.9 - Vitamin D deficiency, unspecified cyanocobalamin (vitamin B-12) 1,000 mcg PO DAILY 90 days 90 tabs 3RF Changed From prazosin 2 mg PO BEDTIME 90 caps 1RF To prazosin 3 mg (3 x 1 mg) PO BEDTIME 30 days 90 caps 1RF
== END 2024-03-20 14:08 | disposition home or self-care (01) ==
PROVIDERS: PCP Internal Medicine; Visit Provider Internal Medicine
DX: B18.2 Chronic viral hepatitis C (principal); F10.20 Alcohol dependence, uncomplicated; F19.11 Other psychoactive substance abuse, in remission; F33.9 Major depressive disorder, recurrent, unspecified; R32 Unspecified urinary incontinence; J45.20 Mild intermittent asthma, uncomplicated; R73.01 Impaired fasting glucose; L60.1 Onycholysis; G47.00 Insomnia, unspecified; F41.9 Anxiety disorder, unspecified; E66.9 Obesity, unspecified

== ENCOUNTER 2024-03-20 13:03 | Outpatient (REF) | payer OTHER, SELFPAY ==
[2024-03-20 14:31] LABS: MANUAL DIFF FLAG NO
[2024-03-20 14:35] LABS: Basophils Percent Auto 0.3 % (0-2); Eosinophils Percent Auto 0.5 % (0-4); Hemoglobin 11.2 g/dl (12.0-16.0); Imm Gran Abs Auto 0.01 X10*3/uL (0.00-0.03); Imm Gran Pct Auto 0.3 % (0.0-0.4); Mean Corpuscular Volume 90.7 fL (80.0-98.0); Mean Platelet Volume 8.9 fL (9.4-12.3); Monocytes Absolute Auto 0.2 X10*3/uL (0.1-1.2); Monocytes Percent Auto 4.4 % (2-11); Neutrophils Absolute Auto 2.6 x10*3/uL (2.0-8.3); Neutrophils Percent Auto 67.5 % (45-73); Platelet Count 214 X10*3/uL (160-400); Red Blood Count 3.86 X10*6/uL (4.20-5.50); Red Cell Distribution Width 12.1 % (11.0-16.0); White Blood Count 3.9 X10*3/uL (4.8-10.8)
[2024-03-20 14:48] LABS: Estimated Average Glucose 91 mg/dL; Hemoglobin A1C 80.6884 umol/L; Hemoglobin A1c % 4.8 % (<6.0); Total Hemoglobin (HGBA1C) 2826.7999 umol/L
[2024-03-20 15:07] LABS: Alanine Aminotransferase 23 U/L (0-31); Albumin Level 4.2 g/dL (3.5-5.0); Alkaline Phosphatase 75 U/L (39-117); Anion Gap 10 (12-20); Aspartate Amino Transferase 31 U/L (5-31); Bilirubin Total 0.2 mg/dL (0.0-1.0); Blood Urea Nitrogen 9 mg/dL (9-16); Calcium 9.4 mg/dL (8.4-10.2); Carbon Dioxide 27 mmol/L (22-29); Chloride 106 mmol/L (96-108); Cholesterol 120 mg/dL (<200); Estimated Glomerular Filt Rate > 60; Glucose Fasting 91 mg/dL (60-99); HDL Cholesterol 46 mg/dL (>40); LDL Cholesterol Calculated 63 mg/dL (<100); Potassium 4.6 mmol/L (3.3-5.1); Sodium 138 mmol/L (135-145); Total Protein 6.7 g/dL (6.5-8.0); Triglycerides 59 mg/dL (<150)
[2024-03-20 15:10] LABS: Appearance Urine Clear; Color Urine Yellow; Glucose Urine UA Negative (Negative); Leukocyte Esterase Urine Negative (Negative); Nitrite Urine Negative (Negative); Specific Gravity - Urine <= 1.005 (1.005-1.025); Urine Blood Negative (Negative); Urine Ketones Negative (Negative); Urine Protein Negative (Neg-Trace)
[2024-03-20 15:23] LABS: TSH reflex Free T4 1.17 uIU/mL (0.32-4.0); Vitamin D 25-OH Total 35.7 ng/mL (>30)
[2024-03-20 15:41] LABS: Folate 13.2 ng/mL (> or = 4.0); Vitamin B12 329 pg/mL (200-900)
== END 2024-03-20 13:04 | disposition home or self-care (01) ==
LOC: HO.LAB 13:03
PROVIDERS: PCP Internal Medicine; Visit Provider Internal Medicine
DX: R32 Unspecified urinary incontinence (principal); J45.20 Mild intermittent asthma, uncomplicated; F10.20 Alcohol dependence, uncomplicated; B18.2 Chronic viral hepatitis C; F19.11 Other psychoactive substance abuse, in remission; L60.1 Onycholysis; G47.00 Insomnia, unspecified; F41.9 Anxiety disorder, unspecified; F33.9 Major depressive disorder, recurrent, unspecified; E66.9 Obesity, unspecified; Z79.899 Other long term (current) drug therapy; Z00.00 Encounter for general adult medical examination without abnormal findings; D64.9 Anemia, unspecified; R30.0 Dysuria; E55.9 Vitamin D deficiency, unspecified; E78.00 Pure hypercholesterolemia, unspecified; E53.8 Deficiency of other specified B group vitamins; E11.9 Type 2 diabetes mellitus without complications
CPT/HCPCS: 36415; 80053; 80061; 81003; 82306; 82607; 82746; 83036; 84443; 85025; 96127; 99212

== ENCOUNTER 2024-05-23 08:49 | Emergency (ER) | payer OTHER, SELFPAY ==
--- NOTE | ~2024-05-23 | XR_ITS ---
EXAMINATION: XR CHEST 2 VIEWS HISTORY: sob wheezing COMPARISON: There are no prior studies for comparison. FINDINGS: PA and lateral views of the chest are submitted. There is airspace opacity in the right middle lobe, consistent with pneumonia. The left lung is clear. There is no pleural effusion, pneumothorax, or pulmonary vascular congestion. The heart is normal in size. The bones are intact. XR/XR chest 2V IMPRESSION: Right middle lobe pneumonia. Follow-up is recommended to document resolution. Electronically signed by: Manuel Baires MD 05/23/2024 11:00 AM [facility]
[2024-05-23 09:17] VITALS: BP 110/77; PULSE 106; RESP 18; TEMP 37.5; O2SAT 93; BMI 37.3
[2024-05-23 09:37] LABS: MANUAL DIFF FLAG NO
[2024-05-23 09:41] LABS: Appearance Urine Cloudy; Color Urine Dark Yellow; Glucose Urine UA Negative (Negative); Leukocyte Esterase Urine Negative (Negative); Nitrite Urine Negative (Negative); PH 5.5 (5.0-9.0); Specific Gravity - Urine 1.025 (1.005-1.025); Urine Blood Negative (Negative); Urine Ketones Trace mg/dL (Negative); Urine Protein Negative (Neg-Trace)
[2024-05-23 09:43] LABS: Basophils Percent Auto 0.4 % (0-2); Hematocrit 31.6 % (37.0-47.0); Hemoglobin 10.1 g/dl (12.0-16.0); Imm Gran Abs Auto 0.02 X10*3/uL (0.00-0.03); Imm Gran Pct Auto 0.3 % (0.0-0.4); Lymphocytes Absolute Auto 0.7 X10*3/uL (1.2-4.9); Lymphocytes Percent Auto 8.5 % (20-40); Mean Corpuscular Hemoglobin 28.7 pg (27.0-33.0); Mean Corpuscular Volume 89.8 fL (80.0-98.0); Mean Platelet Volume 8.7 fL (9.4-12.3); Monocytes Absolute Auto 0.4 X10*3/uL (0.1-1.2); Monocytes Percent Auto 4.4 % (2-11); Neutrophils Absolute Auto 6.9 x10*3/uL (2.0-8.3); Neutrophils Percent Auto 86.4 % (45-73); Platelet Count 193 X10*3/uL (160-400); Red Blood Count 3.52 X10*6/uL (4.20-5.50)
[2024-05-23 09:49] LABS: IDNOW Serial# 08D9AD1C; Strep A Nucleic Acid Negative (Negative)
[2024-05-23 09:52] LABS: Alanine Aminotransferase 20 U/L (0-31); Alkaline Phosphatase 70 U/L (39-117); Anion Gap 14 (12-20); Aspartate Amino Transferase 26 U/L (5-31); Bilirubin Total 0.4 mg/dL (0.0-1.0); Blood Urea Nitrogen 17 mg/dL (9-16); Calcium 8.7 mg/dL (8.4-10.2); Carbon Dioxide 28 mmol/L (22-29); Chloride 101 mmol/L (96-108); Creatinine Clr Calc Pharmacy 89.2; Estimated Glomerular Filt Rate > 60; Glucose Random 113 mg/dL (60-115); Magnesium 1.9 mg/dL (1.6-2.6); Potassium 4.5 mmol/L (3.3-5.1); Sodium 138 mmol/L (135-145); Total Protein 6.8 g/dL (6.5-8.0)
[2024-05-23 10:21] LABS: Influenza A PCR NEGATIVE (Negative); Influenza B PCR NEGATIVE (Negative); Resp Syncy Virus RNA Qual PCR NEGATIVE (Negative); SARS COV2 PCR INHOUSE NEGATIVE (Negative)
--- NOTE | 2024-05-23 11:43 | ED.GENADULT ---
HPI - General Adult General Chief complaint: Upper Respiratory Symptoms Stated complaint: Headache, fever Time Seen by Provider: 05/23/24 11:43 Source: patient Mode of arrival: ambulatory Limitations: no limitations History of Present Illness ED Provider: Alessandra Gabriel PA-C HPI narrative: Patient is a 44 year old assigned female at with a history of asthma, alcoholism, depression, anxiety, and hepatitis C presenting to the emergency department today with a fever, cough, congestion, headache, and wheezing. Patient states that she woke up this morning feeling generally unwell with fever, cough, congestion, headache, and wheezing. Patient denies any dizziness, lightheadedness, abdominal pain, nausea, vomiting, chills, blurry vision, double vision, loss of vision, chest pain, difficulty breathing, shortness of breath, back pain, night sweats, pain with urination, increased urinary frequency, increased urinary urgency, blood in her urine or stool, syncope or a near syncopal episode, recent trauma or falls, bowel incontinence, bladder incontinence, or any other complaints at this time. Relieving factors: none Exacerbating factors: none Associated symptoms: cough, fever/chills and headaches Treatments prior to arrival: none Related Data Home Medications ?Medication ?Instructions ?Recorded ?Confirmed methadone 10 mg/mL oral concentrate 108 mg PO DAILY 05/24/22 03/20/24 mirabegron 50 mg tablet,extended 50 mg PO DAILY 03/20/24 03/20/24 release 24 hr (Myrbetriq) Previous Rx's ?Medication ?Instructions ?Recorded acamprosate 333 mg tablet,delayed 333 mg PO BID #60 tabs 06/17/21 release tizanidine 4 mg tablet 4 mg PO TID PRN for muscle spasm 09/30/21 #90 tabs fluticasone propionate 110 1 puff PO BID #12 ea 05/15/23 mcg/actuation HFA aerosol inhaler (Flovent HFA) mometasone 100 mcg/actuation HFA 2 puff inhalation BID #13 grams 05/26/23 aerosol inhaler (Asmanex HFA) cyanocobalamin (vitamin B-12) 1,000 mcg PO DAILY 90 days #90 tabs 12/26/23 1,000 mcg tablet acetaminophen 500 mg tablet 500 mg PO Q6H PRN pain 30 days 03/20/24 #120 tabs biotin 5 mg tablet 5 mg PO DAILY 90 days #90 tabs 03/20/24 cholecalciferol (vitamin D3) 50 50 mcg PO DAILY 90 days #90 caps 03/20/24 mcg (2,000 unit) capsule cyanocobalamin (vitamin B-12) 1,000 mcg PO DAILY 90 days #90 tabs 03/20/24 1,000 mcg tablet mirtazapine 30 mg tablet 30 mg PO BEDTIME 30 days #30 tabs 03/20/24 prazosin 1 mg capsule 3 mg (3 x 1 mg) PO BEDTIME 30 days 03/20/24 #90 caps calcium 600 mg (as 1 tab PO DAILY 90 days #90 tabs 04/26/24 carbonate)-vitamin D3 10 mcg (400 unit) tablet clonazepam 2 mg tablet 2 mg PO TID PRN anxiety 30 days 04/26/24 #90 tabs gabapentin 800 mg tablet 800 mg PO TID 30 days #90 tabs 05/15/24 albuterol sulfate 90 mcg/actuation 2 puff inhalation QID PRN for 05/21/24 aerosol inhaler (Ventolin HFA) wheezing #18 ea bupropion HCl 150 mg tablet,12 hr 150 mg PO BID 30 days #60 tabs 05/21/24 sustained-release fluoxetine 20 mg capsule 60 mg (3 x 20 mg) PO QAM 30 days 05/21/24 #90 caps amoxicillin 875 mg-potassium 1 tab PO BID 7 days #14 tabs 05/23/24 clavulanate 125 mg tablet doxycycline hyclate 100 mg tablet 100 mg PO BID 7 days #14 tabs 05/23/24 prednisone 20 mg tablet 20 mg PO DAILY 7 days #7 tabs 05/23/24 Allergies Allergy/AdvReac Type Severity Reaction Status Date / Time codeine [CODEINE] Allergy Intermediate RASH Verified 05/23/24 09:20 hydrocodone [Vicodin] Allergy Unknown unknown Verified 05/23/24 09:20 Review of Systems Constitutional: Constitutional: Reports no additional constitutional complaints, Denies chills, Reports fever(s), Reports headache(s) and Denies night sweats Eyes: Eyes: Reports no additional eye complaints, Denies blurry vision, Denies change in vision, Denies diplopia, Denies eye discharge, Denies loss of vision and Denies eye pain ENT: Denies dizziness and Reports headache(s) Cardiovascular: Cardiovascular: Reports no additional cardiovascular complaints, Denies chest pain, Denies lightheadedness, Denies Loss of Consciousness and Denies dyspnea Respiratory: Respiratory: Reports no additional respiratory complaints, Reports cough, Denies dyspnea and Reports wheezing Gastrointestinal: Gastrointestinal: Reports no additional gastrointestinal complaints, Denies abdominal pain, Denies melena, Denies hematochezia, Denies change in bowel habits and Denies change in stool character Genitourinary: Genitourinary: Denies hematuria, Denies urinary frequency, Denies dysuria, Denies urinary incontinence, Denies urinary hesitancy and Denies urinary urgency Musculoskeletal: Musculoskeletal: Reports no additional musculoskeletal complaints, Denies numbness and Denies tingling Neurologic: Denies dizziness, Reports headache(s), Denies loss of vision, Denies numbness and Denies tingling Psychiatric: Psychiatric: Reports no additional psychiatric complaints Endocrine: Endocrine: Reports no additional endocrine complaints Hematologic/Lymphatic: Hematologic/Lymphatic: Reports no additional hematologic/lymphatic complaints Allergic/Immunologic: Allergic/Immunologic: Reports no additional allergic/immunologic complaints and Reports wheezing PMFSH Past Medical History Attestation statement: The following information was validated with the patient. Source: old records reviewed and nursing notes reviewed Medical History Overweight (BMI 25.0-29.9) Asthma Edema Bruising, spontaneous Alcoholism Abnormal serum iron level Polysubstance abuse History of substance abuse Insomnia Depression Anxiety Arthralgia Transaminitis Hepatitis C Leg pain, bilateral Obesity (BMI 30-39.9) Impaired fasting glucose Urinary incontinence Abdominal pain, suprapubic Fatigue Muscle cramps Surgical History History of laparoscopy History of cholecystectomy History of tonsillectomy History of Family History Family History Mother Diabetes Father Hypertension Paternal Grandfather Myocardial infarction Social History Social History Housing: Apartment Alcohol intake: current Alcohol intake frequency: holidays/special occasions only Patient Tobacco Use Status: Current everyday Tobacco user Tobacco use type: Cigarette Cigarettes Per Day: 15 e-Cigarette/Vaping Use: Never Used Second Hand Smoke Exposure: No Advance Directives: No Advance Directives Information Provided: Yes Do you have a plan to hurt others: No Plan service: No Current occupational status: unemployed Cognitive needs: No Hearing needs: No Vision needs: Yes Physical Exam ED Vital Signs: Vital Signs - 24 hr 05/23/24 09:17 Temperature 99.5 F Pulse Rate 106 H Respiratory Rate 18 Blood Pressure 110/77 Pulse Oximetry 93 Oxygen Delivery Method Room Air BMI result Body Mass Index 37.3 Const General: cooperative, no acute distress, alert and awake Nutritional Appearance: well nourished Orientation/consciousness: patient oriented x3 Limitations: no limitations HENMT Head: Yes normal to inspection and Yes atraumatic Ears: hearing grossly normal bilaterally and external ears normal General nose exam: Normal external nose present, no nasal discharge noted and no epistaxis Face and sinus: Yes normal facial exam, No abrasion and No laceration Mouth: Normal oral and palatal mucosa present, no drooling and no muffled voice Eyes General: appearance normal, both eyes and all related structures Periorbital: periorbital findings normal Eyelids: Yes eyelids normal Conjunctivae: conjunctivae normal Pupils: Equal, round and reactive pupils present EOM: EOMs intact bilaterally Neck Neck: Yes normal visual inspection, Yes full ROM and Yes no lymphadenopathy Chest Chest palpation & inspection: normal inspection of the chest Resp Effort & Inspection: normal respiratory effort and able to speak in complete sentences GI Inspection: Yes normal to inspection Neuro General: patient oriented x3, moves all extremities and CN's II-XI intact bilaterally Cranial nerves: Yes Equal, round and reactive pupils present Cognition (Neuro): normal cognition Extrem General: Yes normal to inspection, Yes full ROM and Yes capillary refill normal Psych Appearance: grossly normal Mental Status: mental status grossly normal Affect: normal affect Attitude: cooperative Thought process: Normal thought process present Thought content: Normal thought content present Insight: Good insight present (Psych) Medical Decision Making Medical Decision Making MDM Narrative: Patient is a 44 year old assigned female at with a history of asthma, alcoholism, depression, anxiety, and hepatitis C presenting to the emergency department today with a fever, cough, congestion, headache, and wheezing. Patient's physical exam was unremarkable. Patient's blood work was unremarkable. Patient's chest x-ray showed right middle lobe pneumonia. I explained my physical exam findings as well as all test results to the patient. I answered all questions asked by the patient. I stressed the importance of the patient taking her medication as directed (either prescribed or as the over the counter packaging recommends). I stressed the importance of the patient following up with her primary care provider. I stressed the importance of the patient returning to the emergency department immediately if her symptoms were to worsen or if she were to develop any dizziness, shortness of breath, difficulty breathing, chest pain, blurry vision, loss of vision, nausea, vomiting, abdominal pain, fever, chills, back pain, or any other complaints. Patient verbalized agreement and understanding with this treatment plan and discharge. Differential Diagnosis Differential Diagnoses: The differential diagnosis associated with the presentation includes PNA Viral illness COVID-19 Influenza RSV Admission/Observation Consideration of admission/observation: Escalation of care including admission/observation considered Patient would have been admitted to the hospital had her work up had any findings where hospital admission was appropriate and her clinical presentation warranted hospital admission. Lab Data [facility] Lab Attestation statement: I reviewed the patient's lab results. My interpretation of these results are in the [facility] Rationale portion of this note. 05/23/24 09:31 05/23/24 09:31 Labs: Lab Results 05/23/24 Range/Units 09:31 WBC 8.0 (4.8-10.8) X10*3/uL RBC 3.52 L (4.20-5.50) X10*6/uL Hgb 10.1 L (12.0-16.0) g/dl Hct 31.6 L (37.0-47.0) % MCV 89.8 (80.0-98.0) fL MCH 28.7 (27.0-33.0) pg MCHC 32.0 (31.0-35.0) g/dl RDW 13.0 (11.0-16.0) % Plt Count 193 (160-400) X10*3/uL MPV 8.7 L (9.4-12.3) fL Immature Gran % (Auto) 0.3 (0.0-0.4) % Neut % (Auto) 86.4 H (45-73) % Lymph % (Auto) 8.5 L (20-40) % [place] % (Auto) 4.4 (2-11) % Eos % (Auto) 0.0 (0-4) % Baso % (Auto) 0.4 (0-2) % Lymph # (Auto) 0.7 L (1.2-4.9) X10*3/uL [place] # (Auto) 0.4 (0.1-1.2) X10*3/uL Eos # (Auto) 0.0 (0.0-0.4) X10*3/uL Baso # (Auto) 0.0 (0.0-0.2) X10*3/uL Abs Immat Gran (auto) 0.02 (0.00-0.03) X10*3/uL Absolute Neuts (auto) 6.9 (2.0-8.3) x10*3/uL Absolute Nucleated RBC 0.000 (0.0-0.012) X10*3/uL Nucleated RBC % (auto) 0.0 (0.0-0.2) /100WBC Sodium 138 (135-145) mmol/L Potassium 4.5 (3.3-5.1) mmol/L Chloride 101 (96-108) mmol/L Carbon Dioxide 28 (22-29) mmol/L Anion Gap 14 (12-20) BUN 17 H (9-16) mg/dL Creatinine 0.87 (0.5-1.4) mg/dL Estim Creat Clear Calc 89.2 Estimated GFR > 60 Random Glucose 113 (60-115) mg/dL Calcium 8.7 D (8.4-10.2) mg/dL Magnesium 1.9 (1.6-2.6) mg/dL Total Bilirubin 0.4 (0.0-1.0) mg/dL AST 26 (5-31) U/L ALT 20 (0-31) U/L Alkaline Phosphatase 70 (39-117) U/L Total Protein 6.8 (6.5-8.0) g/dL Albumin 4.0 (3.5-5.0) g/dL Urine Color Dark Yellow Urine Appearance Cloudy Urine pH 5.5 (5.0-9.0) Ur Specific Pollard 1.025 (1.005-1.025) Urine Protein Negative (Neg-Trace) mg/dL Urine Glucose (UA) Negative (Negative) mg/dL Urine Ketones Trace (Negative) mg/dL Urine Blood Negative (Negative) Urine Nitrite Negative (Negative) Ur Leukocyte Esterase Negative (Negative) Influenza Type A (PCR) NEGATIVE (Negative) Influenza Type B (PCR) NEGATIVE (Negative) RSV RNA Qual (PCR) NEGATIVE (Negative) SARS-CoV-2 RNA (RT-PCR) NEGATIVE (Negative) S. pyogenes GrpA YAYA Negative (Negative) Independent Interpretation I performed an independent interpretation of an: Plain X-Ray Interpretation: My interpretation is in agreement with the radiologist's impression of this imaging study. EXAMINATION: XR CHEST 2 VIEWS HISTORY: sob wheezing COMPARISON: There are no prior studies for comparison. FINDINGS: PA and lateral views of the chest are submitted. There is airspace opacity in the right middle lobe, consistent with pneumonia. The left lung is clear. There is no pleural effusion, pneumothorax, or pulmonary vascular congestion. The heart is normal in size. The bones are intact. XR/XR chest 2V IMPRESSION: Right middle lobe pneumonia. Follow-up is recommended to document resolution. Electronically signed by: Manuel Baires MD 05/23/2024 11:00 AM [facility] Dictated By: Manuel aBires MD Signed By: Electronically signed by Manuel Baires MD 05/23/24 1100 Radiology Impression Discussion of test interpretation with radiology: I have reviewed the radiologist's reading. Prescription Management I considered prescription management with: Antibiotic (patient prescribed ABX for right middle lobe pneumonia) Discharge Plan Discharge Clinical Impression: Pneumonia Patient Disposition: Home, Self-Care Instructions: Pneumonia (ED) Additional Instructions: Take your medication as prescribed. Follow up with your primary care provider. Return to the emergency department immediately if your symptoms worsen or if you develop any dizziness, shortness of breath, difficulty breathing, chest pain, blurry vision, loss of vision, nausea, vomiting, abdominal pain, fever, chills, back pain, or any other complaints. Prescriptions: New prednisone 20 mg tablet 20 mg PO DAILY 7 Days Qty: 7 0RF doxycycline hyclate 100 mg tablet 100 mg PO BID 7 Days Qty: 14 0RF amoxicillin-pot clavulanate 875-125 mg tablet 1 tab PO BID 7 Days Qty: 14 0RF No Action acamprosate 333 mg tablet,delayed release (DR/EC) 333 mg PO BID Qty: 60 0RF tizanidine 4 mg tablet 4 mg PO TID PRN (Reason: for muscle spasm) Qty: 90 1RF fluticasone propionate [Flovent HFA] 110 mcg/actuation HFA aerosol inhaler 1 puff PO BID Qty: 12 0RF Asmanex HFA 100 mcg/actuation HFA aerosol inhaler 2 puff inhalation BID Qty: 13 3RF cyanocobalamin (vitamin B-12) 1,000 mcg tablet 1,000 mcg PO DAILY 90 Days Qty: 90 3RF calcium carbonate-vitamin D3 600 mg-10 mcg (400 unit) tablet 1 tab PO DAILY 90 Days Qty: 90 3RF clonazepam 2 mg tablet 2 mg PO TID PRN (Reason: anxiety) 30 Days Qty: 90 0RF gabapentin 800 mg tablet 800 mg PO TID 30 Days Qty: 90 1RF albuterol sulfate [Ventolin HFA] 90 mcg/actuation HFA aerosol inhaler 2 puff inhalation QID PRN (Reason: for wheezing) Qty: 18 0RF bupropion HCl 150 mg tablet sustained-release 12 hr 150 mg PO BID 30 Days Qty: 60 1RF fluoxetine 20 mg capsule 60 mg PO QAM 30 Days Qty: 90 1RF methadone 10 mg/mL concentrate 108 mg PO DAILY Rx Instructions: [facility] mirabegron [Myrbetriq] 50 mg tablet extended release 24 hr 50 mg PO DAILY prazosin 1 mg capsule 3 mg PO BEDTIME 30 Days Qty: 90 1RF acetaminophen 500 mg tablet 500 mg PO Q6H PRN (Reason: pain) 30 Days Qty: 120 0RF Rx Instructions: do not take more that 2000 mg a day mirtazapine 30 mg tablet 30 mg PO BEDTIME 30 Days Qty: 30 1RF cholecalciferol (vitamin D3) 50 mcg (2,000 unit) capsule 50 mcg PO DAILY 90 Days Qty: 90 3RF cyanocobalamin (vitamin B-12) 1,000 mcg tablet 1,000 mcg PO DAILY 90 Days Qty: 90 3RF biotin 5 mg tablet 5 mg PO DAILY 90 Days Qty: 90 3RF Referrals: Aime Hicks MD [Primary Care Provider] - Print Language: Danish
[2024-05-23] MEDS: Doxycycline Monohydrate 100 MG CAPSULE PO (12:07)
[2024-05-23] MEDS: Amoxicillin/Potassium Clav 875 MG TABLET PO (12:08)
[2024-05-23] MEDS: predniSONE 20 MG TABLET PO (12:08)
[2024-05-23 12:12] VITALS: BP 110/77; PULSE 106; RESP 18; TEMP 37.5; O2SAT 93
== END 2024-05-23 12:13 | disposition home or self-care (01) ==
PROVIDERS: Emergency Provider Emergency Medicine Emergency Medical Services; PCP Internal Medicine
DX: J18.9 Pneumonia, unspecified organism (principal); R51.9 Headache, unspecified; R50.9 Fever, unspecified; F17.210 Nicotine dependence, cigarettes, uncomplicated; Z03.818 Encounter for observation for suspected exposure to other biological agents ruled out
CPT/HCPCS: 0241U; 71046; 80053; 81003; 83735; 85025; 87651; 99282; 99283

== ENCOUNTER → 2024-05-23 09:20 | Outpatient (BNV) | payer OTHER, SELFPAY | PROVIDERS: Emergency Provider Emergency Medicine Emergency Medical Services; PCP Internal Medicine; Visit Provider Radiology Diagnostic Radiology | DX: R06.02 Shortness of breath (principal) | CPT/HCPCS: 71046 ==

== ENCOUNTER 2024-11-06 14:32 | Outpatient (AMB) | payer OTHER, SELFPAY ==
[2024-11-06 14:34] VITALS: BP 110/68; PULSE 78; O2SAT 95; BMI 38.5
--- NOTE | 2024-11-06 14:34 | A.OFFPC_ITS ---
Vital Signs 11/06/24 14:34 Height 5 ft 2 in Weight 210 lb 6 oz BMI 38.5 BP 110/68 Blood Pressure Location Lt brachial Position Sitting Pulse 78 Pulse Source Pulse Oximeter Pulse Oximetry (%) 95 Oxygen Delivery Method Room Air Intake Visit Reasons: 4 months Follow up Collection Analyst Required: No Accompanied by: Self / Same As Patient Allergies codeine (CODEINE) Allergy (Intermediate, Verified 11/06/24 15:00) RASH hydrocodone (Vicodin) Allergy (Unknown, Verified 11/06/24 15:00) unknown Medication List - Last Reconciled 11/06/24 by Aime Hicks MD acamprosate 333 mg PO BID acetaminophen 500 mg PO Q6H PRN 30 days albuterol sulfate 2.5 mg (3 mL) continuous nebulization QID PRN 30 days albuterol sulfate 90 mcg/actuation (Ventolin HFA) 2 puffs inhalation QID PRN amoxicillin-pot clavulanate 875-125 mg 1 tab PO BID 7 days biotin 5 mg PO DAILY 90 days budesonide-formoterol 160-4.5 mcg/actuation (Symbicort) 1 inh inhalation BID bupropion HCl SR 150 mg PO BID 30 days calcium carbonate-vitamin D3 600 mg-10 mcg (400 unit) 1 tab PO DAILY 90 days cholecalciferol (vitamin D3) 50 mcg PO DAILY 90 days clonazepam 2 mg PO TID PRN 30 days cyanocobalamin (vitamin B-12) 1,000 mcg PO DAILY 90 days cyanocobalamin (vitamin B-12) 1,000 mcg PO DAILY 90 days doxycycline hyclate 100 mg PO BID 7 days fluoxetine 60 mg (3 x 20 mg) PO QAM 30 days fluticasone propionate 110 mcg/actuation 1 puff PO BID gabapentin 800 mg PO TID 30 days iron,carbonyl-vitamin C 65 mg iron- 125 mg (Vitron-C) 1 tab PO DAILY methadone 108 mg PO DAILY mirabegron ER (Myrbetriq) 50 mg PO DAILY mirtazapine 30 mg PO BEDTIME 30 days mometasone 100 mcg/actuation (Asmanex HFA) 2 puffs inhalation BID multivitamin 1 tab PO DAILY nebulizer accessories As directed nebulizers (AeroEclipse II Nebulizer) As directed prazosin 3 mg (3 x 1 mg) PO BEDTIME 30 days prednisone 20 mg PO DAILY 7 days tizanidine 4 mg PO TID PRN trazodone 50 mg PO BEDTIME PRN Tobacco use date assessed: 11/06/24 Dental Screening Dental Screen Date: 11/06/24 Did you have a dental visit in the last 12 months?: Yes Did you have a dental problem in the last 6 months where you did not have access to dental care?: No Was dental information given to patient?: Patient has dentist HPI 4 months Follow up HPI Details Patient comes in today for her follow-up visit States that she currently feels okay Report that she had had some changes to her medications since her last visit and these have been updated accordingly in her medication list today She denies any headaches or dizziness Denies any chest pains, no increased shortness and breath No nausea/vomiting, no abdominal pain No change in bowel habits noted [facility] Medical History Overweight (BMI 25.0-29.9) Asthma Edema Bruising, spontaneous Alcoholism Abnormal serum iron level Polysubstance abuse History of substance abuse Insomnia Depression Anxiety Arthralgia Transaminitis Hepatitis C Leg pain, bilateral Obesity (BMI 30-39.9) Impaired fasting glucose Urinary incontinence Abdominal pain, suprapubic Fatigue Muscle cramps Surgical History History of laparoscopy History of cholecystectomy History of tonsillectomy History of Family History Mother Diabetes Father Hypertension Paternal Grandfather Myocardial infarction Social History Housing: Apartment Alcohol intake: current Alcohol intake frequency: holidays/special occasions only Patient Tobacco Use Status: Current everyday Tobacco user Tobacco use type: Cigarette Cigarettes Per Day: 15 e-Cigarette/Vaping Use: Never Used Second Hand Smoke Exposure: No service: No Current occupational status: unemployed Cognitive needs: No Hearing needs: No Vision needs: Yes Questionnaire PHQ-9 Over the last 2 weeks, how often have you been bothered by any of the following problems? 1. Little interest or pleasure in doing things: not at all 2. Feeling down, depressed, or hopeless: several days 3. Trouble falling or staying asleep, or sleeping too much: not at all 4. Feeling tired or having little energy: several days 5. Poor appetite or overeating: not at all 6. Feeling bad about yourself - or that you are a failure or have let yourself or your family down: not at all 7. Trouble concentrating on things, such as reading the newspaper or watching television: not at all 8. Moving or speaking so slowly that other people could have noticed. Or the opposite - being so fidgety or restless that you have been moving around a lot more than usual: several days 9. Thoughts that you would be better off or of hurting yourself in some way: not at all Total score: 3 Depression Screening Interpretation: Positive Depression Screening Follow-up: Existing condition and In treatment Depression Screening Done: Yes 06263 - PHQ-9 Billing: Yes Source: Developed by Drs. Manuel Rizo, Lucrecia Cage, Say Hampton and colleagues, with an educational zahra from [employer]. Thrive Questionnaire Date Thrive assessed: 11/06/24 I am a: Patient What is your living situation today?: I have a steady place to live Within the past 12 months, did the food you bought not last and you didn't have the money to get more?: I choose not to answer this question Within the past 12 months, did you worry whether your food would run out before you got money to buy more?: I choose not to answer this question Do you have trouble paying for medicines?: I choose not to answer this question Do you have trouble getting transportation to medical appointments?: I choose not to answer this question Do you have trouble paying your heating and electricity bill?: Yes Do you have trouble taking care of your child, family member or friend?: I choose not to answer this question Do you have trouble with day-to-day activities such as bathing, preparing meals, shopping, managing finances, etc.?: I choose not to answer this question Are you currently unemployed and looking for a job?: I choose not to answer this question Are you interested in more education?: I choose not to answer this question Please select the resources that you would like help with: None Currently or been in a relationship where the following occur: No concerns reported THRIVE Score: 1 AUDIT C Alcohol Use Questionnaire (AUDIT-C) 1. How often do you have a drink containing alcohol?: Never 3. How often do you have six or more drinks on one occasion?: Never Total Score: 0 Score Reviewed/Action Taken: Yes RONALD-7 AMB Questionnaire RONALD-7 Date RONALD - 7 assessed: 11/06/24 Feeling nervous, anxious, or on edge: 1 = Several days Not being able to stop or control worryin = Several days Worrying too much about different things: 1 = Several days Trouble relaxin = Several days Being so restless that it is hard to sit still: 2 = More than half the days Becoming easily annoyed or irritable: 3 = Nearly every day Feeling afraid as if something awful might happen: 1 = Several days Total RONALD-7 score (0-4 normal; 5-9 mild; 10-14 moderate; 15-21 severe): 10 Source: Developed by Drs. Manuel Rizo, Lucrecia Cage, Say Hamtpon and colleagues, with an educational zahra from [employer]. Review of Systems Const Denies chills, Reports difficulty sleeping, Reports fatigue, Denies fever(s) and Denies headache(s) ENT Denies dysphagia, Denies dizziness, Denies otalgia, Denies headache(s), Denies neck pain, Denies odynophagia and Denies sore throat Card Denies chest pain, Denies palpitations and Reports dyspnea on exertion (mild) Resp Denies chest congestion, Denies cough and Reports dyspnea on exertion (mild) GI Reports abdominal pain (on and off cramping pain over the lower abdomen), Denies constipation, Denies dysphagia, Denies heartburn, Denies diarrhea, Denies nausea, Denies odynophagia and Denies vomiting Denies difficulty voiding, Denies nocturia, Denies dysuria, Reports urinary incontinence and Reports urinary urgency (at times) Musc Denies back pain, Denies arthralgias and Denies neck pain Skin/Breast Denies rash Neuro Denies dizziness and Denies headache(s) Psych Reports anxiety and Reports depression Endo Reports fatigue and Denies palpitations Physical exam (Primary Care) Vital Signs: Last Vital Signs Pulse 78 11/06/24 14:34 BP 110/68 11/06/24 14:34 Pulse Ox 95 11/06/24 14:34 Oxygen Delivery Method Room Air 11/06/24 14:34 BMI result Body Mass Index 38.5 Tobacco/Smoking Status: Tobacco use Status Tobacco use date assessed 11/06/24 11/06/24 14:41 Patient Tobacco Use Status Current everyday Tobacco 11/06/24 14:41 Tobacco use type Cigarette 11/06/24 14:41 e-Cigarette/Vaping Use Never Used 11/06/24 14:41 PHQ-9: PHQ-9 Score PHQ-9: Total score 3 11/06/24 15:08 Depression Screening Interpretation: Positive Depression Screening Follow-up: Existing condition and In treatment Thrive Assessment: Date of Thrive Assessment Date Thrive assessed 11/06/24 11/06/24 14:41 Currently or been in a relationship where the following occur: No concerns reported Const General: no acute distress and alert HENMT Ears: TM's normal bilaterally and EAC's normal Throat: Yes posterior oropharynx normal and Yes tonsils normal (no TP congestion) Neck Neck: Yes supple and No lymphadenopathy Thyroid: Thyroid normal Resp Auscultation: clear to auscultation bilaterally, no rales and no wheezes Cardio Rate: regular rate Rhythm: regular rhythm Heart sounds: no murmurs GI Palpation (GI): Soft to palpation and nontender Auscultation: normal bowel sounds General: Yes no CVA tenderness Back/Spine/Pelvis Back: no CVA tenderness Thoracic/Lumbar Spine: lumbar spinal tenderness (mild) Skin Rashes: no rashes Extrem General: Yes no clubbing, cyanosis or edema Coding Level of Care Code Est Pt Level 4 (18924) Diagnoses Mild intermittent asthma without complication J45.20 Asthma severity: mild Asthma persistence: intermittent Asthma complication type: uncomplicated Impaired fasting glucose R73.01 Urinary incontinence, unspecified type R32 Urinary Incontinence type: unspecified incontinence Alcoholism F10.20 Chronic hepatitis C without hepatic coma B18.2 Viral hepatitis chronicity: chronic Hepatic coma status: without hepatic coma History of substance abuse F19.11 Insomnia, unspecified type G47.00 Insomnia type: unspecified Anxiety F41.9 Episode of recurrent major depressive disorder, unspecified depression episode severity F33.9 Depression Type: major depressive disorder Major depression recurrence: recurrent Active/Remission status: currently active Major depression episode severity: unspecified Obesity (BMI 30-39.9) E66.9 Additional Codes PHQ-9 - 11042 - PHQ-9 Billing: Yes ([id number]) Assessment & Plan Assessment & Plan (1) Asthma: Code(s): J45.909 - Unspecified asthma, uncomplicated Category: Medical Qualifiers: Asthma severity: mild Asthma persistence: intermittent Asthma complication type: uncomplicated Qualified Code(s): J45.20 - Mild intermittent asthma, uncomplicated Plan: Her asthma currently appears adequately controlled Continue Symbicort 160-4.5 mcg 1 inhalation BID and Albuterol HFA 2 inhalations Q 6 hours PRN (2) Impaired fasting glucose: Code(s): R73.01 - Impaired fasting glucose Category: Medical Plan: Her FBS was normal at 91 mg/dl but her HgbA1c was normal at 4.8% when they were both last checked in March 2024 Reinforced low calorie/low carb diet Will recheck her labs in 4 months for follow up (3) Urinary incontinence: Code(s): R32 - Unspecified urinary incontinence Category: Medical Qualifiers: Urinary Incontinence type: unspecified incontinence Qualified Code(s): R32 - Unspecified urinary incontinence Plan: Follow-up with urology as scheduled (4) Alcoholism: Code(s): F10.20 - Alcohol dependence, uncomplicated Category: Medical Plan: States that she has been able to stay sober and has not had any alcohol to drink in a while now Continue Campral 333 mg 1 tablet BID (5) Hepatitis C: Code(s): B19.20 - Unspecified viral hepatitis C without hepatic coma Category: Medical Qualifiers: Viral hepatitis chronicity: chronic Hepatic coma status: without hepa tic coma Qualified Code(s): B18.2 - Chronic viral hepatitis C Plan: S/P Tx with [facility] Patient's hepatitis C viral load was at 3,650,000 when checked last February 2019; genotype is 1A Follow up with GI as scheduled for continuing surveillance (6) History of substance abuse: Code(s): F19.11 - Other psychoactive substance abuse, in remission Category: Medical Plan: She used to be on Suboxone but suffered a relapse; is now still on Methadone at 108 mg QD Follow up with [facility] ([facility]) regularly as scheduled (7) Insomnia: Code(s): G47.00 - Insomnia, unspecified Category: Medical Qualifiers: Insomnia type: unspecified Qualified Code(s): G47.00 - Insomnia, unspecified Plan: Sleep hygiene reinforced She was previously on Trazodone but this was discontinued when it was no longer helping him Continue Mirtazapine 30 mg Q HS and Prazosin 3 mg Q HS (8) Anxiety: Code(s): F41.9 - Anxiety disorder, unspecified Category: Medical Plan: Continue Clonazepam 2 mg 3 times a day as needed, Clonidine 0.2 mg TID, Bupropion SR 150 mg BID and Fluoxetine 60 mg QD Follow up with psychiatry as scheduled (9) Depression: Code(s): F32.9 - Major depressive disorder, single episode, unspecified Category: Medical Qualifiers: Depression Type: major depressive disorder Major depression recurrence: recurrent Active/Remission status: currently active Major depression episode severity: unspecified Qualified Code(s): F33.9 - Major depressive disorder, recurrent, unspecified Plan: Continue Fluoxetine 20 mg 3 capsules (60 mg) daily in the morning, Wellbutrin SR 150 mg twice a day, and Prazosin 3 mg once a day at bedtime (to help with her nightmares), as well as Gabapentin 800 mg TID Follow-up with Psychiatry as scheduled (10) Obesity (BMI 30-39.9): Code(s): E66.9 - Obesity, unspecified Category: Medical Plan: Reinforce diet/exercise as tolerated/lose weight Continue Mounjaro 10 mg SQ Q week Plan Follow up in 4 months Orders: Orders Lipid Panel 4 Months E78.00 - Pure hypercholesterolemia, unspecified TSH reflex Free T4 4 Months E78.00 - Pure hypercholesterolemia, unspecified UA CC w/rflx Micro + Cult 4 Months R30.0 - Dysuria Vitamin B12 and Folate 4 Months E53.8 - Deficiency of other specified B group vitamins Complete Blood Count Auto Diff 4 Months D64.9 - Anemia, unspecified Comprehensive [place]. Panel Fast 4 Months E78.00 - Pure hypercholesterolemia, unspecified Vitamin D 25-OH Total 4 Months E55.9 - Vitamin D deficiency, unspecified Medications: New omeprazole 20 mg PO DAILY 90 caps 0RF clonidine HCl 0.2 mg PO TID 90 tabs 0RF tirzepatide (Mounjaro) 10 mg (0.5 mL) subcut QWEEK 2 mL 0RF Discontinued amoxicillin-pot clavulanate 875-125 mg Discontinued Reason: Patient Completed Course 1 tab PO BID 7 days 14 tabs 0RF doxycycline hyclate Discontinued Reason: Patient Completed Course 100 mg PO BID 7 days 14 tabs 0RF
--- OUTSIDE RECORDS SUMMARY | 2024-11-06 15:14 | XMS_ITS | Clinical Summary ---
Author Organization [facility] Address [address] [place] [address] Care Team Providers Care Fitness And Wellness Coordinator Name Role Phone Unavailable Primary Care Provider Unavailabl e Source Comments PLEASE NOTE, if this patient is a minor, it may be UNLAWFUL to discuss sensitive information that is contained in these records (such as FAMILY PLANNING, MENTAL HEALTH or SUBSTANCE ABUSE) with the minor patient's parent or other person without the patient's specific authorization.[facility] Medications ibuprofen (ADVIL,MOTRIN) 600 mg tabletIndication s:Periodontitis Take 1 Tab by mouth 4 (four) times daily as needed for pain 20 Tab 06/22/2017 Active Active Problems No known active problems Encounters Date Type Department Care Team Description 11/05/2024 10:20 AM EDT Office Visit [address] [id number] Denise Edouard DMD from Last 3 Months Social History Tobacco Use Types Packs/Day Years Used Date Smoking Tobacco: Every Day Vape Smokeless Tobacco: Never Tobacco Cessation:Ready to Q uit: Not Asked; Counseling Given: Not Answered Social Connections Answer Date Recorded Connectedness 0 12/29/2023 Financial Resource Strain Answer Date R ecorded Financial Resource Strain 0 2022 Stress Answer Date Recorded Stress 0 07/25/2022 Physical Activity Answer Date Recorded Physical Activity 0 07/25/2022 Food Insecurity Answer Date Recorded Food 0 01/04/2024 Transportation Needs Answer Date Record ed Transportation 0 07/25/2022 Housing Stability Answer Date Recorded Housing 0 07/25/2022 Safety and Environment Answer Date Jose rded Safety 0 07/25/2022 Utilities Answer Date Recorded Utilities 0 07/25/2022 Employment Answer Date Recorded Stress 0 12/29/2023 Comments Unknown Sex and Gender Information Value Date Recorded Sex Assigned at Not on file Legal Sex Female 6:45 AM PDT Gender Identity Not on file Sexual Orientation Not on file Last Filed Vital Signs Vital Sign Reading Time Taken Comments Blood Pressure 89/73 11/05/2024 10:12 AM EDT Pulse 88 11/05/2024 10:12 AM EDT Temperature - - Respiratory Rate - - Oxygen Saturation - - Inhaled Oxygen Concentration - - Weight - - Height - - Body Mass Index - - Plan of Treatment Health Maintenance Due Date Last Done Comments Anxiety Screening 1982 Diabetes Screening 1982 HPV Screening 1982 Hepatitis C Screening 1982 Lipid Screening 1982 Pap + HPV 1982 Tobacco Cessation Counseling (#1) 1982 HIV Screening 1997 Relationship Safety Screening/Counseling 1997 Imm-DTaP/Tdap/Td (1 - Tdap) 2001 Imm-Hepatitis B (1 of 3 - 19+ 3-dose series) 1 Cervical Cancer Screening 2003 Pap Smear 2003 Imm-Pneumococcal (2 of 2 - PCV) 04/02/2016 5 Breast Cancer Screening (Mammogram) 2022 [id number] ( - season) 2023 Alcohol and Drug Screen 04/10/2024 Depression Annual Screen 04/10/2024 Imm-Influenza (#1) 2024 04/02/2015 Hypertension Screening (#1) 11/05/2025 Cervical Ablation/Cold-Knife Conization Discontinued Cervical Cryotherapy Discontinued Colposcopy Discontinued Endometrial Biopsy Discontinued Excision/Leep Discontinued HPV Genotyping Discontinued Vaginal Pap Discontinued Vulvoscopy Discontinued Procedures Procedure Name Priority Date/Time Associated Diagnosis Comments COMPLETE DENTURE - IN PROCESS Routine 11/05/2024 10:20 AM EDT Missing teeth, acquired from Last 3 Months Insurance [place]
== END 2024-11-06 15:13 | disposition home or self-care (01) ==
LOC: HO.HMCH 14:32
PROVIDERS: PCP Internal Medicine; Visit Provider Internal Medicine
DX: J45.20 Mild intermittent asthma, uncomplicated (principal); F10.20 Alcohol dependence, uncomplicated; B18.2 Chronic viral hepatitis C; F19.11 Other psychoactive substance abuse, in remission; E66.9 Obesity, unspecified; Z68.38 Body mass index [BMI] 38.0-38.9, adult; R73.01 Impaired fasting glucose; R32 Unspecified urinary incontinence; G47.00 Insomnia, unspecified; F41.9 Anxiety disorder, unspecified; F33.9 Major depressive disorder, recurrent, unspecified

== ENCOUNTER → 2024-11-06 14:32 | Outpatient (BNVA) | payer OTHER, SELFPAY | PROVIDERS: PCP Internal Medicine; Visit Provider Internal Medicine | DX: J45.20 Mild intermittent asthma, uncomplicated (principal); R73.01 Impaired fasting glucose; R32 Unspecified urinary incontinence; F10.20 Alcohol dependence, uncomplicated; B18.2 Chronic viral hepatitis C; F19.11 Other psychoactive substance abuse, in remission; G47.00 Insomnia, unspecified; F41.9 Anxiety disorder, unspecified; F33.9 Major depressive disorder, recurrent, unspecified; E66.9 Obesity, unspecified; E78.00 Pure hypercholesterolemia, unspecified; R30.0 Dysuria; E53.8 Deficiency of other specified B group vitamins; D64.9 Anemia, unspecified; E55.9 Vitamin D deficiency, unspecified; Z68.38 Body mass index [BMI] 38.0-38.9, adult | CPT/HCPCS: 96127; 99212 ==